=== PATIENT | female | born 1935 | race Caucasian/White ===

== ENCOUNTER → 2017-03-29 | Outpatient (REF) | payer MEDICARE, BC, OTHER ==
[~2017-03-29] MED LIST: ALEV220C2 PO; ASPI81TA85 PO; CALC600T7 PO; CENTCHW4 PO; CRAN500C2 PO; CYCL10TA3 PO; GERITAB9 PO; GLUC500C4 PO; IRON100T PO; OMEP20CA3 PO; PRAV40TA2 PO; ULTR50TA PO; [UNRECOGNIZED DRUG - MIXTURE] PO
== END ==
LOC: M LAB REF 09:50
PROVIDERS: ATTEND Registered Nurse
DX: L82.1 Other seborrheic keratosis (principal)

== ENCOUNTER 2020-06-07 13:40 | Inpatient (IN) | payer MEDICARE, BC, OTHER ==
[~2020-06-07] VITALS: Ht 165.1 cm; Wt 62.1 kg
[2020-06-07 17:45] VITALS: BP 153/93
[2020-06-07] MEDS ORDERED: MORPHINE 2 MG/ML 1ML VIAL (J2270) IV PRN (18:30)
--- NOTE | 2020-06-07 18:37 | HPEPDOC ---
General Date of Admission Jun 07, 2020 at 17:20 Date of Service: Jun 07, 2020 Attending Physician: JOSE SIMON DO Chief Complaint The patient is a 84-year-old female admitted with a reason for visit of Mid Shaft Femur Fracture. Source: Patient Exam Limitations: No limitations History of Present Illness Mrs. Boggs is an 84-year-old female with osteoporosis, arthritis, lumbago, and hyperlipidemia who is transferred here from [facility] for right femur fracture. Prior treatments today she was feeling well. She is not able to climb stairs secondary to her left leg fracture, but she tells me that she can walk the length of either [employer] or [employer] without difficulty. She sometimes uses a cane to help her walk. Today she tripped over a paperhanger assistant and fell on the dining room floor. She denied any head strike. She denied any lightheadedness or dizziness. She denies any palpitations or chest pain. She denies any loss of consciousness. She went to the ED at [facility] where they found her left leg fracture. They contacted orthopedic surgery, Dr. Jennings. Then, the patient was transferred here. When I went to see the patient, she told me that she was feeling well other than her leg. Denied any fever or chills, sore throat, dyspnea, or worsening cough. She tells me she has a chronic cough. Her lungs sounded clear, and her heart was in sinus rhythm. The patient is medically optimized. There is no contraindication to surgery. Afterwards I contacted Dr. Jennings to let him know about the patient. Home Medications Scheduled (Aleve) 220 Mg Cap, 220 MG PO PRN, (Reported) Aspirin (Aspir 81) 81 Mg Tab, 81 MG PO DAILY, (Reported) Calcium Carbonate/Vitamin D3 (Calcium 600-Vit D3 200 Tablet) 600 Mg Tab, 600 MG PO BID, (Reported) Cranberry Extract (Cranberry) 500 Mg Cap, 2,000 MG PO BID, (Reported) Cyclobenzaprine Hcl (Cyclobenzaprine Hcl) 10 Mg Tab, 10 MG PO PRN, (Reported) Glucosamine Sulfate (Glucosamine) 500 Mg Cap, 500 MG PO DAILY, (Reported) Iron,Carbonyl/Ascorbic Acid (Iron 100-Vitamin C Tablet) 1 Tab Tab, 1 TAB PO BID, (Reported) Multivit-Min/Iron/Folic/Vit K1 (Centrum Chewables Adults Tab) 1 Each Tab.chew, 1 PO IOANA, (Reported) Multivit-Min36/Iron/Folic Acid (Geritol Complete Tablet) Complete Tab, 1 PO DAILY, (Reported) Omeprazole (Omeprazole) 20 Mg Cap, 20 MG PO BID, (Reported) Pravastatin Sodium (Pravastatin Sodium) 40 Mg Tab, 20 MG PO DAILY, (Reported) Tramadol Hcl (Ultram) 50 Mg Tab, 50 MG PO PRN, (Reported) [Tosartan-Hctz] , PO DAILY, (Reported) Allergies Coded Allergies: No Known Drug Allergies (Verified Allergy, Unknown, 06/07/20) Past Medical History Medical History 1. Hyperlipidemia 2. GERD 3. Osteoporosis 4. Allergic rhinitis 5. Arthritis 6. Glaucoma Surgical History 1. Left hip replacement Family History Father: Cancer, unknown Mother: Kidney cancer Social History * Smoker: former Smoker (quit 65 years ago, smoked for 1 year, quarter pack per day) Alcohol: occationally Drugs: denies A-FIB/CHADSVASC A-FIB History Current/History of A-Fib/PAF?: No Review of Systems Constitutional: Denies: Chills, Fever Eyes: Denies: Vision change ENT: Denies: Head Aches Skin: Denies: Rash Pulmonary: Reports: Cough (chronic); Denies: Dyspnea Cardiovascular: Denies: Chest Pain, Palpitations Gastrointestinal: Reports: Constipation (last bowel movement was yesterday); Denies: Nausea, Abdominal Pain, Diarrhea Genitourinary: Denies: Dysuria Musculoskeletal: Reports: Leg Pain (secondary to right leg fracture) Neurological: Reports: Numbness (occasionally gets numbness in her right leg, currently not numb) Physical Examination General Exam: Positive: Alert, Cooperative, No Acute Distress Eye Exam: Positive: EOMI; Negative: Sclera icteric ENT Exam: Positive: Atraumatic, Mucous membr. moist/pink Neck Exam: Positive: Supple Chest Exam: Positive: Clear to auscultation; Negative: Rales, Rhonchi, Wheezing Heart Exam: Positive: Rate Normal, Regular Rhythm Abdomen Exam: Positive: Normal bowel sounds, Soft; Negative: Tenderness Extremity Exam: Negative: Edema Neuro Exam: Positive: Cranial Nerves 3-12 NL Psych Exam: Positive: Mental status NL, Mood NL, Oriented x 3 Vital Signs Temperature: 98.8, pulse: 68, respiratory: 17, blood pressure: 153/69, pulse ox: 98% at room air Assessment/Plan Mrs. Boggs is an 84-year-old female with osteoporosis, arthritis, lumbago, and history of left hip replacement who is here after having a mechanical fall and fracturing her right femur. Today she did not see the paperhanger assistant, and tripped over the paperhanger assistant landing on hardwood floor. She went to [facility] ED where they found her to have a right femur fracture. I contacted Dr. Jennings, he is aware and will be seeing the patient. Patient is medically optimized. There is no contraindication for surgery, and patient should proceed as needed. Plan / VTE VTE Prophylaxis Ordered?: Yes Plan Plan 1. Right femur fracture Mechanical fall. Slipped on a paperhanger assistant. Denies any head strike, loss of consciousness, lightheadedness or dizziness, chest pain, or palpitations. Orthopedics, Dr. Jennings, is aware. He will be seeing the patient tonight. Recommendations appreciated NPO 2. Glaucoma We will continue her eyedrops 3. Hypertension Restart antihypertensives tomorrow 4. Hyperlipidemia Restart statin tomorrow 5. GERD Restart PPI tomorrow 6. DVT prophylaxis KEISHA on left leg for now as patient will be having surgery on the right leg. JOSE SIMON DO Jun 07, 2020 18:17
[2020-06-07] MEDS ORDERED: PRAV40TA2 PO (18:44)
[2020-06-07] MEDS ORDERED: CALCTAB89 PO (18:44)
[2020-06-07] MEDS ORDERED: ASPI81TA86 PO (18:44)
[2020-06-07] MEDS ORDERED: POTA10CA32 PO (18:44)
[2020-06-07] MEDS ORDERED: MULTTAB57 PO (18:44)
[2020-06-07] MEDS ORDERED: AZOP0.2S OS (18:44)
[2020-06-07] MEDS ORDERED: NEXI20TA PO (18:44)
[2020-06-07] MEDS ORDERED: TRAV2.5D OU (18:44)
[2020-06-07] MEDS ORDERED: LOSA100T50 PO (18:44)
[2020-06-07] MEDS ORDERED: HYDR25TAB PO (18:44)
[2020-06-07 20:23] VITALS: BP 144/67
[2020-06-07] MEDS ORDERED: propofoL 200 MG/20 ML VIAL As Ordered ONE (20:46)
[2020-06-07] MEDS ORDERED: dexameTHASONE 4 MG/ML 1ML VIAL (J1100 PER 1MG) As Ordered ONE (20:46)
[2020-06-07] MEDS ORDERED: LIDOCAINE 2% 100MG/5ML SDV (FOR ANES.) As Ordered ONE (20:46)
[2020-06-07] MEDS ORDERED: fentaNYL 100 MCG/2 ML INJECTION (J3010) As Ordered ONE (20:46)
[2020-06-07] MEDS ORDERED: ONDANSETRON 4MG/2ML VIAL As Ordered ONE (20:47)
[2020-06-07] MEDS ORDERED: TRANEXAMIC ACID 100 MG/ML 10ML VIAL As Ordered ONE (20:49)
[2020-06-07] MEDS ORDERED: ceFAZolin 1GM VIAL (J0690 PER 500MG) As Ordered ONE (20:49)
[2020-06-07] MEDS: POTASSIUM CHLORIDE 10 MEQ SR TABLET PO SCH (21:00)
[2020-06-07] MEDS: BRINZOLAMIDE 1 % OPHTH SUSP (AZOPT) 10ML OS SCH (21:00)
[2020-06-07] MEDS: LATANOPROST 0.005% OPHTH SOLN 2.5 ML OU SCH (21:00)
[2020-06-07] MEDS ORDERED: ceFAZolin 2 GM/D5W 50 ML IV BAG (J0690 PER 500MG) As Ordered ONE (21:32)
[2020-06-07] MEDS ORDERED: PHENYLephrine HCL 500 MCG/5 ML (100MCG/ML) SYRINGE (J2370) As Ordered ONE (21:44)
[2020-06-07] MEDS ORDERED: ACETAMINOPHEN 1000MG 100ML IV BTL (OFIRMEV) (J0131 PER 10MG) As Ordered ONE (22:23)
[2020-06-07] MEDS ORDERED: ePHEDrine SULFATE 25 MG/5 ML(5MG/ML) SYRINGE As Ordered ONE (22:23)
[2020-06-07] MEDS ORDERED: BUPIVACAINE HCL 0.25% 10ML VIAL As Ordered ONE (23:04)
[2020-06-07] MEDS ORDERED: fentaNYL 100 MCG/2 ML INJECTION (J3010) IV PRN (23:45)
[2020-06-07] MEDS ORDERED: MEPERIDINE INJ 25 MG/ML VIAL (J2175) IV PRN (23:45)
[2020-06-07] MEDS ORDERED: PERCOCET 5MG/325MG TAB PO PRN (23:45)
[2020-06-08] VITALS (10 sets, daily range): BP systolic 139–168; BP diastolic 58–75
[2020-06-08] MEDS ORDERED: LR 1,000 ML IV SCH (03:30)
[2020-06-08] MEDS ORDERED: ACETAMINOPHEN 500 MG TAB PO PRN (06:00)
[2020-06-08] MEDS: traMADol 50 MG TAB PO PRN ×2 (06:13→18:52)
[2020-06-08 07:04] LABS: HEMOGLOBIN 10.2 g/dl (12.0-15.5); MEAN CORPUSCULAR HEMOGLOBIN 32.9 pg (27.0-33.0); MEAN CORPUSCULAR HGB CONC 31.9 g/dl (32.0-36.5); MEAN CORPUSCULAR VOLUME 103.2 fl (80.0-96.0); PLATELET COUNT, AUTOMATED 234 10^3/uL (150-450); WHITE BLOOD COUNT 12.3 10^3/uL (4.0-10.0)
[2020-06-08 07:37] LABS: ALBUMIN 2.9 GM/DL (3.2-5.2); ALT/SGPT 14 U/L (12-78); BILIRUBIN,TOTAL 0.4 MG/DL (0.2-1.0); BLOOD UREA NITROGEN 17 MG/DL (7-18); CALCIUM LEVEL 8.2 MG/DL (8.8-10.2); CARBON DIOXIDE LEVEL 22 MEQ/L (21-32); CHLORIDE LEVEL 108 MEQ/L (98-107); CREATININE FOR GFR 0.93 MG/DL (0.55-1.30); GLOMERULAR FILTRATION RATE > 60.0 (>32); GLUCOSE, FASTING 137 MG/DL (70-100); POTASSIUM SERUM 3.9 MEQ/L (3.5-5.1); SODIUM LEVEL 139 MEQ/L (136-145); TOTAL PROTEIN 6.4 GM/DL (6.4-8.2)
--- NOTE | 2020-06-08 09:47 | ECGEPIP ---
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
[2020-06-08] MEDS: BRINZOLAMIDE 1 % OPHTH SUSP (AZOPT) 10ML OS SCH ×2 (09:48→20:48)
[2020-06-08] MEDS: MOM 30ML SUSPENSION UDC PO SCH (09:48)
[2020-06-08] MEDS: LOSARTAN 50MG TABLET PO SCH (09:48)
[2020-06-08] MEDS: MIRALAX *UNIT DOSE* 17GM PACKET PO SCH (09:48)
[2020-06-08] MEDS: PRAVASTATIN 20 MG TAB PO SCH (09:49)
[2020-06-08] MEDS: hydroCHLOROthiazide 25 MG TAB PO SCH (09:49)
[2020-06-08] MEDS: PANTOPRAZOLE 20 MG TAB PO SCH (09:49)
[2020-06-08] MEDS: POTASSIUM CHLORIDE 10 MEQ SR TABLET PO SCH ×2 (09:50→20:50)
[2020-06-08] MEDS: RIVAROXABAN 10 MG TAB (XARELTO) PO SCH (18:51)
[2020-06-08] MEDS ORDERED: CALCIUM CARBONATE 500 MG CHEW U/D PO PRN (19:00)
--- NOTE | 2020-06-08 19:06 | IPNPDOC ---
Subjective Date Seen The patient was seen on 06/08/20. Subjective Chief Complaint/HPI Mrs. Boggs is an 84-year-old female with osteoporosis, arthritis, lumbago, and hyperlipidemia who is transferred here from [facility] for right femur fracture. This morning physical therapy try to work with her, but she did not do well. She became very tachycardic when trying to sit up. Otherwise when I spoke with her, she had pain in her right leg. Denies any fever or chills, lightheadedness or dizziness, chest pain, dyspnea, diarrhea, or dysuria. Constitutional: Denies: Chills, Fever Pulmonary: Denies: Dyspnea Cardiovascular: Denies: Chest Pain Gastrointestinal: Denies: Abdominal Pain, Diarrhea Genitourinary: Denies: Dysuria Objective Physical Examination General Exam: Positive: Alert, Cooperative, No Acute Distress Eye Exam: Positive: EOMI; Negative: Sclera icteric ENT Exam: Positive: Atraumatic, Mucous membr. moist/pink Neck Exam: Positive: Supple Chest Exam: Positive: Clear to auscultation; Negative: Rales, Rhonchi, Wheezing Heart Exam: Positive: Rate Normal, Regular Rhythm Abdomen Exam: Positive: Normal bowel sounds, Soft; Negative: Tenderness Extremity Exam: Negative: Edema Neuro Exam: Positive: Cranial Nerves 3-12 NL Psych Exam: Positive: Mental status NL, Mood NL, Oriented x 3 Assessment /Plan Assessment Mrs. Boggs is an 84-year-old female with osteoporosis, arthritis, lumbago, and history of left hip replacement who is here after having a mechanical fall and fracturing her right femur. Her surgery was on 06/07/2020. Today is postop day 1. She did not do well with physical therapy. Physical therapy recommended skilled rehabilitation. Plan/VTE VTE Prophylaxis Ordered?: Yes Plan 1. Right femur fracture Mechanical fall. Slipped on a guide changer. Denies any head strike, loss of consciousness, lightheadedness or dizziness, chest pain, or palpitations. Orthopedic surgery following. Recommendations appreciated 2. Glaucoma We will continue her eyedrops 3. Hypertension Continue losartan and HCTZ 4. Hyperlipidemia Continue pravastatin 5. GERD Protonix Patient requested Tums as well 6. DVT prophylaxis Xarelto Dispo: Will need to discuss long term with therapeutic case manager on Wednesday. VS, I&O, 24H, Fishbone Vital Signs/I&O Vital Signs Date Time Temp Pulse Resp B/P (MAP) Pulse Ox O2 Delivery O2 Flow Rate FiO2 06/08/20 18:52 20 06/08/20 14:00 98.8 97 154/68 (96) 97 Room Air 06/07/20 23:25 2 I&O- Last 24 Hours up to 6 AM 06/08/20 06:00 Intake Total 1400 ml Output Total 1000 ml Balance 400 ml Laboratory Data 24H LABS Laboratory Tests 2 06/08/20 06:23: Nucleated Red Blood Cells % (auto) 0.0, Anion Gap 9, Glomerular Filtration Rate > 60.0, Calcium Level 8.2L, Total Bilirubin 0.4, Aspartate Amino Transf (AST/SGOT) 20, Alanine Aminotransferase (ALT/SGPT) 14, Alkaline Phosphatase 28L, Total Protein 6.4, Albumin 2.9L, Albumin/Globulin Ratio 0.8L CBC/BMP Laboratory Tests 06/08/20 06:23 JOSE SIMON DO Jun 08, 2020 19:06
[2020-06-08] MEDS: LATANOPROST 0.005% OPHTH SOLN 2.5 ML OU SCH (20:50)
[2020-06-08] MEDS: traZODone 25MG PER 1/2 TABLET PO SCH (20:50)
[2020-06-09] MEDS: traMADol 50 MG TAB PO PRN ×3 (01:47→20:33)
[2020-06-09 06:00] VITALS: BP 136/64
[2020-06-09 08:00] LABS: HEMATOCRIT 28.7 % (36.0-47.0); HEMOGLOBIN 9.2 g/dl (12.0-15.5); MEAN CORPUSCULAR HGB CONC 32.1 g/dl (32.0-36.5); MEAN CORPUSCULAR VOLUME 102.9 fl (80.0-96.0); PLATELET COUNT, AUTOMATED 283 10^3/uL (150-450); RED BLOOD COUNT 2.79 10^6/uL (4.00-5.40); WHITE BLOOD COUNT 11.7 10^3/uL (4.0-10.0)
[2020-06-09 08:40] LABS: CALCIUM LEVEL 8.6 MG/DL (8.8-10.2); CREATININE FOR GFR 1.1 MG/DL (0.55-1.30); GLOMERULAR FILTRATION RATE 50.4 (>32); POTASSIUM SERUM 4.2 MEQ/L (3.5-5.1)
[2020-06-09] MEDS: LOSARTAN 50MG TABLET PO SCH (09:30)
[2020-06-09] MEDS: hydroCHLOROthiazide 25 MG TAB PO SCH (09:31)
[2020-06-09] MEDS: POTASSIUM CHLORIDE 10 MEQ SR TABLET PO SCH ×2 (09:31→20:33)
[2020-06-09] MEDS: PANTOPRAZOLE 20 MG TAB PO SCH (09:32)
[2020-06-09] MEDS: MOM 30ML SUSPENSION UDC PO SCH (09:32)
[2020-06-09] MEDS: PRAVASTATIN 20 MG TAB PO SCH (09:32)
[2020-06-09] MEDS: MIRALAX *UNIT DOSE* 17GM PACKET PO SCH (09:33)
[2020-06-09] MEDS: BRINZOLAMIDE 1 % OPHTH SUSP (AZOPT) 10ML OS SCH ×2 (09:34→20:33)
[2020-06-09 14:00] VITALS: BP 152/63
--- NOTE | 2020-06-09 15:49 | IPNPDOC ---
Subjective Date Seen The patient was seen on 06/09/20. Subjective Chief Complaint/HPI Mrs. Boggs is an 84-year-old female with osteoporosis, arthritis, lumbago, and hyperlipidemia who is transferred here from [facility] for right femur fracture. This morning, she is still having pain with the right leg. She has trouble standing on it. Otherwise, denies any fever or chills, lightheadedness or dizziness, chest pain, dyspnea, diarrhea, or dysuria. Did not have bowel movement this morning Constitutional: Denies: Chills, Fever Pulmonary: Denies: Dyspnea Cardiovascular: Denies: Chest Pain Gastrointestinal: Reports: Constipation; Denies: Abdominal Pain, Diarrhea Genitourinary: Denies: Dysuria Objective Physical Examination General Exam: Positive: Alert, Cooperative, No Acute Distress Eye Exam: Positive: EOMI; Negative: Sclera icteric ENT Exam: Positive: Atraumatic, Mucous membr. moist/pink Neck Exam: Positive: Supple Chest Exam: Positive: Clear to auscultation; Negative: Rales, Rhonchi, Wheezing Heart Exam: Positive: Rate Normal, Regular Rhythm Abdomen Exam: Positive: Normal bowel sounds, Soft; Negative: Tenderness Extremity Exam: Negative: Edema Neuro Exam: Positive: Cranial Nerves 3-12 NL Psych Exam: Positive: Mental status NL, Mood NL, Oriented x 3 Assessment /Plan Assessment Mrs. Boggs is an 84-year-old female with osteoporosis, arthritis, lumbago, and history of left hip replacement who is here after having a mechanical fall and fracturing her right femur. Her surgery was on 06/07/2020. Today is postop day 2. She did not do well with physical therapy. Physical therapy recommended skilled rehabilitation. Plan/VTE VTE Prophylaxis Ordered?: Yes Plan 1. Right femur fracture Mechanical fall. Slipped on a slip box changer. Denies any head strike, loss of consciousness, lightheadedness or dizziness, chest pain, or palpitations. Orthopedic surgery following. Recommendations appreciated -POD#2 from surgery, will need rehab 2. Glaucoma We will continue her eyedrops 3. Hypertension Continue losartan and HCTZ 4. Hyperlipidemia Continue pravastatin 5. GERD Protonix. TUMs 6. DVT prophylaxis Xarelto Dispo: Will need to discuss halfway with rn case manager on Wednesday. VS, I&O, 24H, Fishbone Vital Signs/I&O Vital Signs Date Time Temp Pulse Resp B/P (MAP) Pulse Ox O2 Delivery O2 Flow Rate FiO2 06/09/20 14:00 98.0 93 19 152/63 (92) 97 Room Air 06/07/20 23:25 2 I&O- Last 24 Hours up to 6 AM 06/09/20 06:00 Intake Total 1990 ml Output Total 1600 ml Balance 390 ml Laboratory Data 24H LABS Laboratory Tests 2 06/09/20 06:46: Nucleated Red Blood Cells % (auto) 0.0, Anion Gap 7L, Glomerular Filtration Rate 50.4, Calcium Level 8.6L CBC/BMP Laboratory Tests 06/09/20 06:46 JOSE SIMON DO Jun 09, 2020 15:49
[2020-06-09] MEDS: RIVAROXABAN 10 MG TAB (XARELTO) PO SCH (17:50)
[2020-06-09] MEDS: traZODone 25MG PER 1/2 TABLET PO SCH (20:32)
[2020-06-09] MEDS: LATANOPROST 0.005% OPHTH SOLN 2.5 ML OU SCH (20:33)
[2020-06-09 22:00] VITALS: BP 153/83
[2020-06-10 06:00] VITALS: BP 135/64
[2020-06-10 07:18] LABS: HEMATOCRIT 26.7 % (36.0-47.0); HEMOGLOBIN 8.4 g/dl (12.0-15.5); MEAN CORPUSCULAR HEMOGLOBIN 33.1 pg (27.0-33.0); MEAN CORPUSCULAR HGB CONC 31.5 g/dl (32.0-36.5); MEAN CORPUSCULAR VOLUME 105.1 fl (80.0-96.0); PLATELET COUNT, AUTOMATED 265 10^3/uL (150-450); RED BLOOD COUNT 2.54 10^6/uL (4.00-5.40); WHITE BLOOD COUNT 10.9 10^3/uL (4.0-10.0)
[2020-06-10 07:36] LABS: CALCIUM LEVEL 8.4 MG/DL (8.8-10.2); CREATININE FOR GFR 1.03 MG/DL (0.55-1.30); GLOMERULAR FILTRATION RATE 54.3 (>32); POTASSIUM SERUM 4.1 MEQ/L (3.5-5.1)
[2020-06-10] MEDS: MOM 30ML SUSPENSION UDC PO SCH (09:00)
[2020-06-10] MEDS: MIRALAX *UNIT DOSE* 17GM PACKET PO SCH (09:00)
[2020-06-10 09:21] VITALS: BP 122/52
[2020-06-10] MEDS: LOSARTAN 50MG TABLET PO SCH (09:21)
[2020-06-10] MEDS: POTASSIUM CHLORIDE 10 MEQ SR TABLET PO SCH (09:21)
[2020-06-10] MEDS: PRAVASTATIN 20 MG TAB PO SCH (09:21)
[2020-06-10] MEDS: hydroCHLOROthiazide 25 MG TAB PO SCH (09:21)
[2020-06-10] MEDS: BRINZOLAMIDE 1 % OPHTH SUSP (AZOPT) 10ML OS SCH (09:22)
[2020-06-10] MEDS: PANTOPRAZOLE 20 MG TAB PO SCH (09:22)
[2020-06-10] MEDS ORDERED: TRAM50TA2 PO (12:36)
[2020-06-10] MEDS ORDERED: ACET-683 PO (12:36)
[2020-06-10] MEDS ORDERED: MOM30SS2 PO (12:36)
[2020-06-10] MEDS ORDERED: PEG1POW PO (12:36)
[2020-06-10] MEDS ORDERED: XARE10TA PO (12:36)
[2020-06-10] MEDS ORDERED: TRAZ-252 PO (12:36)
[2020-06-10] MEDS ORDERED: CALC200T15 PO (12:36)
[2020-06-10 14:00] VITALS: BP 133/64
--- NOTE | 2020-06-10 20:51 | DS.PDOC ---
Discharge Summary General Date of Admission Jun 07, 2020 at 17:20 Date of Discharge 06/10/2020 Attending Physician: JOSE SIMON DO Specialist/Consultants Involve Orthopedic surgery, Dr. Jennings Discharge Summary PROCEDURES PERFORMED DURING STAY: Recon Nail Right Femur (midshaft femur fracture) ADMITTING DIAGNOSES: 1. Right femur fracture 2. Glaucoma 3. Hypertension 4. Hyperlipidemia 5. GERD DISCHARGE DIAGNOSES: 1. Right femur fracture 2. Glaucoma 3. Hypertension 4. Hyperlipidemia 5. GERD COMPLICATIONS/CHIEF COMPLAINT: Mid Shaft Femur Fracture. HISTORY OF PRESENT ILLNESS: Mrs. Boggs is an 84-year-old female with osteoporosis, arthritis, lumbago, and hyperlipidemia who is transferred here from [facility] for right femur fracture. Prior treatments today she was feeling well. She is not able to climb stairs secondary to her left hip fracture, but she tells me that she can walk the length of either [employer] or [employer] without difficulty. She sometimes uses a cane to help her walk. Today, she tripped over a hangersmith and fell on the dining room floor. She denied any head strike. She denied any lightheadedness or dizziness. She denies any palpitations or chest pain. She denies any loss of consciousness. She went to the ED at [facility] where they found her left leg fracture. They contacted orthopedic surgery, Dr. Jennings. Then, the patient was transferred here. When I went to see the patient, she told me that she was feeling well other than her leg. Denied any fever or chills, sore throat, dyspnea, or worsening cough. She tells me she has a chronic cough. Her lungs sounded clear, and her heart was in sinus rhythm. The patient is medically optimized. There is no contraindication to surgery and patient proceeded to surgery HOSPITAL COURSE: After surgery, patient did not do well with physical therapy. PT recommending rehabilitation. ARU evaluated the patient and accepted the patient to their rehabilitation. Today patient felt well, denied any fever or chills, lightheadedness or dizziness, chest pain, dyspnea, abdominal pain, dysuria. Patient still has pain about controlled with pain medication. Patient was then discharged to [place]. DISCHARGE MEDICATIONS: Please see below. ALLERGIES: Please see below. PHYSICAL EXAMINATION ON DISCHARGE: VITAL SIGNS: Please see below. GENERAL: Comfortable, in no apparent distress. HEENT: Head normocephalic/atraumatic, EOMI, sclera clear. NECK: Supple, no JVD. RESPIRATORY: Lungs clear to auscultation bilaterally, no rales, wheeze or rhonchi. CARDIOVASCULAR: Regular rate and rhythm. ABDOMEN: Soft, nontender, no guarding or rebound tenderness. Normal bowel sound s. MUSCLE SKELETAL: Muscle strength in arms 5/5 NEUROLOGICAL: CN 312 grossly intact, no focal deficits noted. PSYCHOLOGICAL: Normal mood and affect LABORATORY DATA: Please see below. PROGNOSIS: Stable ACTIVITY: As tolerated. DIET: Regular diet DISCHARGE PLAN: Discharged to ARU for rehabilitation DISPOSITION: 62 D/T Rehab Facility. DISCHARGE INSTRUCTIONS: 1. Follow-up with Dr. Lane. DISCHARGE CONDITION: Stable Total time spent on discharge planning, discharge summary, and med reconc iliation 35 minutes Vital Signs/I&Os Vital Signs Date Time Temp Pulse Resp B/P (MAP) Pulse Ox O2 Delivery O2 Flow Rate FiO2 06/10/20 14:00 97.9 98 18 133/64 (87) 97 Room Air 06/07/20 23:25 2 I&O- Last 24 Hours up to 6 AM 06/10/20 06:00 Intake Total 1240 ml Output Total 800 ml Balance 440 ml Laboratory Data Labs 24H Laboratory Tests 2 06/10/20 06:42: Nucleated Red Blood Cells % (auto) 0.0, Anion Gap 9, Glomerular Filtration Rate 54.3, Calcium Level 8.4L CBC/BMP Laboratory Tests 06/10/20 06:42 Discharge Medications Scheduled Aspirin (Aspir 81) 81 Mg Tablet.dr, 81 MG PO BID, (Reported) Brinzolamide (Azopt) 1% 10ML Drops.susp, 1 DROP OS BID, (Reported) Calcium Carbonate (Calcium) 600 Mg Tablet, 600 MG PO BID, (Reported) Esomeprazole Magnesium (Nexium 24Hr) 20 Mg Tablet.dr, 20 MG PO DAILY, (Reported) Hydrochlorothiazide (Hydrochlorothiazide) 25 Mg Tablet, 25 MG PO DAILY, (Reported) Iron Fum,Ag/C/B12/Folic/Ca/Suc (Multigen Plus Caplet) 1 Each Tablet, 1 TAB PO DAILY, (Reported) Losartan Potassium (Losartan Potassium) 100 Mg Tablet, 100 MG PO DAILY, (Reported) Potassium Chloride (Potassium Chloride) 10 Meq Capsule.er, 10 MEQ PO BID, (Reported) Pravastatin Sodium (Pravastatin Sodium) 40 Mg Tablet, 40 MG PO DAILY, (Reported) Rivaroxaban (Xarelto) 10 Mg Tablet, 10 MG PO DAILY@18 Travoprost (Travoprost) 2.5 Ml Drops, 1 DROP OU QHS, (Reported) Trazodone HCl (Trazodone HCl) 50 Mg Tablet, 25 MG PO QHS Scheduled PRN Acetaminophen (Acetaminophen) 500 Mg Tablet, 1,000 MG PO Q8H PRN for PAIN / FEVER Calcium Carbonate (Calcium Carbonate) 200 Mg Tab.chew, 1,000 MG PO Q8HP PRN for HEARTBURN Magnesium Hydroxide (Milk of Magnesia) 400 Mg/5 Ml Oral.susp, 30 ML PO DAILYPRN PRN for CONSTIPATION Polyethylene Glycol 3350 (Polyethylene Glycol 3350) 17 Gm Powd.pack, 1 PKT PO DAILYPRN PRN for CONSTIPATION Tramadol HCl (Tramadol HCl) 50 Mg Tablet, 50 MG PO Q4HP PRN for MODERATE PAIN (PS 5-7) Allergies Coded Allergies: No Known Drug Allergies (Verified Allergy, Unknown, 06/07/20) JOSE SIMON DO Jun 10, 2020 20:51
--- NOTE | 2020-06-11 14:30 | HPE ---
DATE OF ADMISSION: 06/07/2020 CHIEF COMPLAINT: Right midshaft femur fracture. HISTORY OF PRESENT ILLNESS: This 84-year-old female had a trip and fall at home. She tripped over a pattern hanger. No loss of consciousness or other injuries. She is unable to bear weight on her right leg. She went to [facility] and transferred here and admitted to the hospitalist service on at [facility]. She is complaining of right thigh pain. She has pain nowhere else. PAST MEDICAL HISTORY: Nil MEDICATIONS: See the hospitalist note, but she is not on anticoagulation. ALLERGIES: No known drug allergies. SURGICAL IHSTORY: Nil SOCIAL HISTORY: She lives with Eddie, her boyfriend. She lives in a house. She does not smoke. She uses a cane. She is retired. 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 She has four children. PHYSICAL EXAMINATION: She is a well appearing female, looks good for her stated age. She is alert and oriented x3. She communicates appropriately. No obvious deformity to right thigh, but she has pain in the right thigh, nowhere else. No pain in log rolling on the left thigh. There is no pain at the hip or knee. No obvious bruising or open injury. Thigh compartments are soft. Normal sensation in foot. Foot is warm and well perfused. Strong dorsalis pedis pulses. She is able to wiggle her toes, dorsiflex and plantar flex her foot. Blood work reveals INR 0.9. Hemoglobin 11.8. Radiographs taken of the femur read from [facility]. This is a transverse midshaft femur fracture. No other obvious hip or knee injuries; however, there are not dedicated films. Benson virus test pending. ASSESSMENT AND PLAN: This 84-year-old female has right midshaft femur fracture. This is indicated for intramedullary nailing with Synthes Recon nail, open reduction, internal fixation. We discussed pros and cons, risks and benefits of nonsurgical risk versus surgical intervention. The surgical risks included, but limited to infection, pain, stiffness, damage to surrounding structures, neurovascular injury, delayed mal or nonunion, anesthetic complications, blood clots, and other risks, as well as need for further surgery. She understands. Signed consent form for surgery. I marked the right lower extremity. She also consented for possible need for blood products and I explained the pros, cons, risk and benefits of that service as well including, but limited to infection, fever, transmission of bacteria, viruses. We elected to go ahead with the case francesco. Best outcomes are achieved if operated under 24 hours. I have taken intraoperative radiographs of the hip and knee to ensure the femoral fracture as this is common in this injury. The operating room is aware of the case and she will remain n.p.o. and she has been cleared by the hospitalist service and further through the Medicine attending. KATHERINE
--- NOTE | 2020-06-14 13:17 | IPN ---
DATE: 06/08/2020 CHIEF COMPLAINT: Postoperative day #2 right distal femur fracture with retrograde nailing. HISTORY OF PRESENT ILLNESS: This is an 84-year-old female who is postoperative day #2. She is doing extremely well. She has minimal pain at the fracture site. She is already ambulating with the physical therapist. She has not cleared the stairs yet. PHYSICAL EXAMINATION: She is an 84-year-old female. She is extremely pleasant. Incisions have occlusive dressings on aside from the proximal incision. Toes are warm and well-perfused, she is able to wiggle her toes, dorsiflex and plantar flex her foot. Normal sensation in the foot. Vital signs are stable. LABORATORY EXAMINATION: Reveals hemoglobin of 10.2. ASSESSMENT AND PLAN: This is an 84-year-old female who needs to clear the stairs. She may be discharged home today if she able to mobilize and be discharged home. Followup in the office in 2 weeks time to remove naldo. She understands. They will have to make that appointment on Wednesday. We will see how today progresses. We will hopefully place an occlusive dressing on the proximal incision so she can shower the top of the leg. KATHERINE
--- NOTE | 2020-06-14 13:25 | RO ---
DATE OF OPERATION: 06/07/2020 PREOPERATIVE DIAGNOSIS: Right femur fracture. POSTOPERATIVE DIAGNOSIS: Right femur fracture. PLANNED PROCEDURE: Right femur open reduction and internal fixation with Synthes Femoral Recon Nail. PROCEDURE PERFORMED: Right femur open reduction and internal fixation with Synthes Femoral Recon Nail. SURGEON: Geoff Jennings MD ANESTHESIOLOGIST: Dr. Hand ANESTHETIC: General anesthetic. CUSTOMER BUSINESS MANAGER: None. OPERATIVE PREAMBLE: This is an 84-year-old female who sustained a mechanical fall. She sustained a displaced midshaft femur fracture. We discussed pros and cons, risks and benefits, all surgical risks of surgical intervention. The patient wished to go ahead, marked the right lower extremity and proceeded to surgery. OPERATIVE REPORT: The patient was brought to the operating theater, administered general anesthetic. She was placed supine on the fracture table. 2 gm of IV Ancef was administered. All bony prominences were padded. SCDs were used on the down leg. The bear hugger was used. Arm was placed across the body. Right leg in traction, left leg scissored down and attached to the post in mid aspect of the bed and appropriately padded on peroneal aspect as well as mid aspect. The right leg was placed in traction. Preliminary x-rays were obtained. Fracture was falling into apex posterior. A crutch as brought in to hold fracture point and maintain appropriate reduction. Limb was prepped and draped allowing over 3 minutes for prep solution drying time prior to draping. Chlorhexidine-based prep solution was used. Preoperative time out was performed confirming side, patient and surgery. 2 gm IV tranexamic acid was also given prior to the start of the case. I made a small incision 3 fingersbreadth proximal to the level of the greater trochanter. Inserted 3.2 mm partially threaded guidewire at the center of the greater trochanter on both AP and lateral radiographs and through the lesser trochanter as well as down the midshaft of the femur using anterior reamer I passed a ball-tipped guidewire down center-center past the fracture site to the distal aspect of the femur. This measured 390 mm, a 380 mm long nail was chosen with 11 mm diameter. I sequentially reamed up to size 12.5 mm and passed the nail down distally. The fracture was appropriately reduced. Traction was slightly removed to remove a small gap at the fracture site. I then turned my attention proximally. Using drop down guide I then inserted the nail to appropriate depth. I inserted the two guidewires for the femoral neck and head reconstruction screws. This measured 80 mm proximally and 90 mm distally. I drilled and then inserted the two screws to appropriate depth on both PA and lateral radiographs ensuring no penetration, appropriate placement in the midshaft of the neck on lateral radiograph. No obvious femoral neck fracture was seen. I then turned my attention to the fracture site. I ensure the cortices lined up as well as the profile of the lesser trochanter was appropriate compared to the other side as well as overall alignment clinically patella is straight up and down and foot appropriately placed. I used perfect-mescalero apache technique to then insert two fully threaded distal locking screws from lateral to medial. These measured 52 mm long distally and 42 mm long proximally. Fracture appeared well reduced. The proximal guide was removed, final radiographs taken at the fracture site as well as distally and proximally. Fracture appeared well aligned and well fixated. The wounds were thoroughly irrigated. Subcutaneous tissue was closed with 2-0 Vicryl sutures and skin with naldo. 10 mL 0.25% Marcaine was instilled in and around the incision sites. Skin was Skin was cleaned with wet-to-dry dressing followed by application of Adaptic and gauze dressings. The patient was removed from the traction setup, awoken from general anesthetic, transferred off the operating table and taken to the postanesthesia care unit in stable condition. All sponge, needle, clamps and instrument counts were correct. Estimated blood loss 100 mL. Plan for the patient is to be admitted to the hospital, weightbearing as tolerated. She will have OT/PT for assessment of safety for mobilization upon discharge home. Follow up in clinic in 2 weeks time for discontinuation of naldo and clinical check. DVT prophylaxis with Xarelto 10 mg PO once daily starting on postoperative day one. MTDD
--- NOTE | 2020-06-26 08:19 | REP ---
DATE: 06/07/2020 C-ARM VIEWS OF RIGHT FEMUR REPORT: Multiple C-arm views of the right femur performed. There is an intramedullary maddie in the femoral shaft. The fracture of the femoral shaft is well aligned. The intramedullary maddie is fixed distally with two metallic screws and proximally with two screws extending through the intertrochanteric region into the femoral head. 4 minutes, 12 seconds fluoroscopy time utilized. MTDD
== END 2020-06-10 15:05 | DRG 482 ==
LOC: M MS5PR 17:20
PROVIDERS: ADMIT Family Medicine; ATTEND Internal Medicine
PROC: 0QSB04Z Reposition Right Lower Femur with Internal Fixation Device, Open Approach (ICD-10-PCS; principal; 2020-06-07 19:30)
DX: S72.321A Displaced transverse fracture of shaft of right femur, initial encounter for closed fracture (principal); W18.09XA Striking against other object with subsequent fall, initial encounter; Y92.009 Unspecified place in unspecified non-institutional (private) residence as the place of occurrence of the external cause; H40.9 Unspecified glaucoma; I10 Essential (primary) hypertension; M19.90 Unspecified osteoarthritis, unspecified site; E78.5 Hyperlipidemia, unspecified; K21.9 Gastro-esophageal reflux disease without esophagitis; M81.0 Age-related osteoporosis without current pathological fracture; J30.9 Allergic rhinitis, unspecified; Z87.891 Personal history of nicotine dependence; Z96.642 Presence of left artificial hip joint; Z79.899 Other long term (current) drug therapy; Z79.82 Long term (current) use of aspirin

== ENCOUNTER 2020-06-10 13:56 | Inpatient (IN) | payer MEDICARE, BC, OTHER ==
[~2020-06-10] VITALS: Ht 165.1 cm; Wt 58.8 kg
[~2020-06-10 13:56] MED LIST changes: +ACET-683 PO; +ASPI81TA86 PO; +AZOP0.2S OS; +CALC200T15 PO; +CALCTAB89 PO; +HYDR25TAB PO; +LOSA100T50 PO; +MOM30SS2 PO; +MULTTAB57 PO; +NEXI20TA PO; +PEG1POW PO; +POTA10CA32 PO; +TRAM50TA2 PO; +TRAV2.5D OU; +TRAZ-252 PO; +XARE10TA PO
--- NOTE | 2020-06-10 14:18 | HPEPDOC ---
Video Game Repair Technician Note DATE OF ADMISSION: 06-10-20 DATE OF SERVICE: 06-10-20 TIME OF ADMISSION: Please refer to physician's admission order. SOURCE OF ADMISSION INFORMATION: [facility] record and patient CHIEF COMPLAINT: right hip fracture HISTORY OF PRESENT ILLNESS: 84F pmh osteoporosis, chronic low back pain, HLD, glaucoma, allergic rhinitis fell and was transferred from [facility] to [facility] ED on 06-07-20 with a right mid-shaft femur fracture. She was evaluated by orthopedics and underwent an ORIF on 06-07-20 with post-op leukocytosis and difficulty with pain. In addition she had post-op anemia with a drop in her Hgb from 10.2 to 8.4 and noted to have desaturations in her oxygen level in therapy. She was evaluated by therapy and noted to be well below her baseline for mobility and ADLs and deemed medically appropriate for discharge to ARU on 06-10-20. On initial eval she reports feeling weaker overall and a little dizzy with movement. REVIEW OF SYSTEMS: The following is a completed review of systems and has been reviewed. Review of systems otherwise unremarkable. PAIN: Patient self reports right leg pain EYES: No recent vision changes EARS, NOSE, & THROAT: No throat pain, or dysphagia, or rhinorrhea CARDIOVASCULAR: Denies chest pain or palpitations PULMONARY: Denies shortness of breath GASTROINTESTINAL: Denies constipation/diarrhea GENITOURINARY: denies dysuria MUSCULOSKELETAL: right femur fracture NEUROLOGICAL:denies paresthesias or tremor HEMATOLOGICAL: +anemia SKIN: right femur incision PSYCHIATRIC: Unremarkable All other review of systems found to be negative. PAST MEDICAL HISTORY: as per HPI PAST SURGICAL HISTORY: as per HPI and Left hip TKR ALLERGIES: Please see below. MEDICATIONS: Please see below. FAMILY HISTORY: Kidney cancer and cancer SOCIAL HISTORY: Occasional etoh/former smoker/no illicit drugs DIET: regular PHYSICAL EXAMINATION: VITAL SIGNS: Please see below. GENERAL: Pleasant and cooperative. No acute distress. pale HEENT: PERRL. Extraocular movements intact. Clear conjunctiva CARDIOVASCULAR: Regular rate and rhythm. No murmurs, rubs, or gallops LUNGS: Clear to auscultation bilaterally. No wheezes. No rhonchi ABDOMEN: Soft, nontender, nondistended. Positive bowel sounds. Normal active bowel sounds NEUROLOGICAL: Alert and oriented times three. Cranial nerves II through XII grossly intact. Sensation grossly intact EXTREMITIES: 5\5 strength bilateral upper extremities. 5\5 strength right ankle DF/EHL/PF and >3/5 hip flexion (limited due to recent surgery) 5/5 strength in left lower extremity. SKIN: right femur incision c/d/i LABORATORY DATA: Please see below. IMAGING: Imaging documentation personally reviewed by record FUNCTIONAL STATUS: Premorbid: Independent with all activities of daily life as well as mobility On Admission: Contact guard-min assist for ambulation 5 feet, functional transfers, toileting, dressing GOALS: Mod-I community household distances, functional transfers, bed mobility, dressing, bathing, toileting ASSESSMENT:84-year-old F with past medical history of osteoporosis who presents status post fall with right femur fracture PLAN: 1. Rehab- PT/OT advance gait and ADLs, strengthen/stretch/maintain ROM all4 limbs 2. cardiac- hx of HTN c/u Cozaar and HCTZ- medicine consulted to assist in overall management -HLD c/u statin 3. Resp- monitor for infection, encourage incentive spirometry 4. Heme- patient with post-op blood loss anemia, consider transfusion if Hgb <8 or if symptomatic 5. Ortho- s/p right femur ORIF WBAT, ortho consulted 6. GI ppx- protonix 7. DVT ppx- xarelto and teds 8. Pain- tylenol and tramadol 9. Dispo tbd 10. Code- patient requesting DNR/DNI POST ADMISSION PHYSICIAN EVALUATION: Medical and functional status: Description of medical status, medical assessment: As above. Rehabilitation diagnosis and current and prior cold morbid medical conditions as above. Risk of complications and plans to mitigate them as above. Description of functional status current status is as above. Prior status as above. Status compared to preadmission: There are no clinically significant differences between the patient's current status and the information described on the preadmission screening document. Treatment plan anticipated: Treatment plan is as described above. Required disciplines including physical therapy, occupational therapy, others as noted above Intensity of services: 3 hours a day, 6 days a week. Special considerations: There are no specific special or safety considerations that would likely preclude immediate implementation of an intensive rehabilitation program or subsequently influence the plan of care ATTESTATION: Considering all the information above, it is my best judgment that this patient requires intensive rehabilitation therapy as described above and an inpatient hospital environment due to the complexity of nursing, medical, and rehabilitation needs required by the patient. Furthermore, this patient can reasonably be expected to participate in an benefit from an inpatient rehabilitation stay with an interdisciplinary team approach to the delivery of rehabilitation care under the direction and supervision of rehabilitation physician. PROGNOSIS: Excellent ESTIMATED LENGTH OF STAY:12-16 days. PROJECTED DISCHARGE DESTINATION: Home with family support and any durable medical equipment required to increase functional safety and mobility TIME SPENT COUNSELING AND COORDINATING INITIAL CARE: Greater than 70 minutes. Vital Signs Vital Signs Date Time Temp Pulse Resp B/P (MAP) Pulse Ox O2 Delivery O2 Flow Rate FiO2 06/10/20 15:55 97.9 103 18 128/56 (80) 97 Room Air Home Medications Scheduled Aspirin (Aspir 81) 81 Mg Tablet.dr, 81 MG PO BID, (Reported) Brinzolamide (Azopt) 1% 10ML Drops.susp, 1 DROP OS BID, (Reported) Calcium Carbonate (Calcium) 600 Mg Tablet, 600 MG PO BID, (Reported) Esomeprazole Magnesium (Nexium 24Hr) 20 Mg Tablet.dr, 20 MG PO DAILY, (Reported) Hydrochlorothiazide (Hydrochlorothiazide) 25 Mg Tablet, 25 MG PO DAILY, (Reported) Iron Fum,Ag/C/B12/Folic/Ca/Suc (Multigen Plus Caplet) 1 Each Tablet, 1 TAB PO DAILY, (Reported) Losartan Potassium (Losartan Potassium) 100 Mg Tablet, 100 MG PO DAILY, (Reported) Potassium Chloride (Potassium Chloride) 10 Meq Capsule.er, 10 MEQ PO BID, (Reported) Pravastatin Sodium (Pravastatin Sodium) 40 Mg Tablet, 40 MG PO DAILY, (Reported) Rivaroxaban (Xarelto) 10 Mg Tablet, 10 MG PO DAILY@18 Travoprost (Travoprost) 2.5 Ml Drops, 1 DROP OU QHS, (Reported) Trazodone HCl (Trazodone HCl) 50 Mg Tablet, 25 MG PO QHS Scheduled PRN Acetaminophen (Acetaminophen) 500 Mg Tablet, 1,000 MG PO Q8H PRN for PAIN / FEVER Calcium Carbonate (Calcium Carbonate) 200 Mg Tab.chew, 1,000 MG PO Q8HP PRN for HEARTBURN Magnesium Hydroxide (Milk of Magnesia) 400 Mg/5 Ml Oral.susp, 30 ML PO DAILYPRN PRN for CONSTIPATION Polyethylene Glycol 3350 (Polyethylene Glycol 3350) 17 Gm Powd.pack, 1 PKT PO DAILYPRN PRN for CONSTIPATION Tramadol HCl (Tramadol HCl) 50 Mg Tablet, 50 MG PO Q4HP PRN for MODERATE PAIN (PS 5-7) Allergies Coded Allergies: No Known Drug Allergies (Verified Allergy, Unknown, 06/07/20) A-FIB/CHADSVASC A-FIB History Current/History of A-Fib/PAF?: No JOSE VILLEDA MD Jun 10, 2020 14:18
[2020-06-10] MEDS ORDERED: traMADol 50 MG TAB PO PRN (14:30)
[2020-06-10] MEDS ORDERED: CALCIUM CARBONATE 500 MG CHEW U/D PO PRN (14:30)
[2020-06-10 15:55] VITALS: BP 128/56
[2020-06-10] MEDS: GABAPENTIN 100 MG CAP PO SCH ×2 (16:30→20:54)
[2020-06-10] MEDS: ACETAMINOPHEN 500 MG TAB PO SCH ×2 (16:30→20:56)
[2020-06-10] MEDS: RIVAROXABAN 10 MG TAB (XARELTO) PO SCH (17:38)
[2020-06-10 20:15] VITALS: BP 137/62
[2020-06-10] MEDS: DOCUSATE SODIUM 100 MG CAP PO SCH (20:53)
[2020-06-10] MEDS: SENNA 8.6 MG TAB (SENOKOT) PO SCH (20:53)
[2020-06-10] MEDS: POTASSIUM CHLORIDE 10 MEQ SR TABLET PO SCH (20:54)
[2020-06-10] MEDS: traZODone 25MG PER 1/2 TABLET PO SCH (20:54)
[2020-06-10] MEDS: LATANOPROST 0.005% OPHTH SOLN 2.5 ML OU SCH (20:56)
[2020-06-10] MEDS: BRINZOLAMIDE 1 % OPHTH SUSP (AZOPT) 10ML OS SCH (20:56)
[2020-06-11] VITALS (11 sets, daily range): BP systolic 110–154; BP diastolic 55–89
[2020-06-11 06:14] LABS: BASO # 0.1 10^3/uL (0.0-0.2); BASO % 0.6 % (0.0-1.0); EOS # 0.3 10^3/uL (0.0-0.5); EOS % 3.1 % (0.0-3.0); HEMATOCRIT 28.1 % (36.0-47.0); HEMOGLOBIN 8.9 g/dl (12.0-15.5); LYMPH # 1.9 10^3/uL (1.5-5.0); LYMPH % 19.7 % (24.0-44.0); MEAN CORPUSCULAR HEMOGLOBIN 32.5 pg (27.0-33.0); MEAN CORPUSCULAR HGB CONC 31.7 g/dl (32.0-36.5); MEAN CORPUSCULAR VOLUME 102.6 fl (80.0-96.0); MONO # 1.3 10^3/uL (0.0-0.8); MONO % 13.9 % (0.0-5.0); NEUTROPHILS # 5.9 10^3/uL (1.5-8.5); NEUTROPHILS % 61.9 % (36.0-66.0); PLATELET COUNT, AUTOMATED 277 10^3/uL (150-450); RED BLOOD COUNT 2.74 10^6/uL (4.00-5.40); WHITE BLOOD COUNT 9.5 10^3/uL (4.0-10.0)
[2020-06-11 06:37] LABS: ALBUMIN 2.4 GM/DL (3.2-5.2); BILIRUBIN,TOTAL 0.7 MG/DL (0.2-1.0); CALCIUM LEVEL 8.6 MG/DL (8.8-10.2); CREATININE FOR GFR 0.96 MG/DL (0.55-1.30); GLOMERULAR FILTRATION RATE 58.9 (>32); POTASSIUM SERUM 3.7 MEQ/L (3.5-5.1); TOTAL PROTEIN 6.4 GM/DL (6.4-8.2)
[2020-06-11] MEDS: GABAPENTIN 100 MG CAP PO SCH (08:35)
[2020-06-11] MEDS: PRAVASTATIN 20 MG TAB PO SCH (08:35)
[2020-06-11] MEDS: FERROUS GLUCONATE 324 MG TAB PO SCH (08:35)
[2020-06-11] MEDS: ACETAMINOPHEN 500 MG TAB PO SCH ×3 (08:36→21:16)
[2020-06-11] MEDS: POTASSIUM CHLORIDE 10 MEQ SR TABLET PO SCH ×2 (08:36→19:54)
[2020-06-11] MEDS: PANTOPRAZOLE 40MG TAB (PROTONIX) PO SCH (08:37)
[2020-06-11] MEDS: DOCUSATE SODIUM 100 MG CAP PO SCH ×2 (08:37→19:53)
[2020-06-11] MEDS: BRINZOLAMIDE 1 % OPHTH SUSP (AZOPT) 10ML OS SCH ×2 (08:40→19:53)
[2020-06-11] MEDS ORDERED: LOSARTAN 50MG TABLET PO SCH (09:00)
[2020-06-11] MEDS ORDERED: FLUBLOK(EGG FREE)(QUAD)INFLUENZA VACC 0.5ML SYRINGE 18YRS & OLDER IM ONE (09:00)
[2020-06-11] MEDS ORDERED: hydroCHLOROthiazide 25 MG TAB PO SCH (09:00)
[2020-06-11] MEDS ORDERED: FUROSEMIDE 20MG/2ML VIAL (J1940) IV ONE (14:00)
[2020-06-11] MEDS ORDERED: diphenhydrAMINE 25MG CAP PO ONE (14:00)
[2020-06-11] MEDS ORDERED: ACETAMINOPHEN TAB 650MG DOSE (2X325MG) PO ONE (14:00)
--- NOTE | 2020-06-11 14:41 | IPNPDOC ---
PM&R Progress Note DATE OF SERVICE: Jun 11, 2020 Admitting Office Escort Progress Note Subjective: PAtient reporting she felt dizzy and light headed in therapy after exerting herself and very weak. She denies chest pain or palpitations. She is agreeable to receiving blood transfusion. REVIEW OF SYSTEMS: The following is a completed review of systems and has been reviewed. Review of systems otherwise unremarkable. PAIN: Patient self reports right leg pain EYES: No recent vision changes EARS, NOSE, & THROAT: No throat pain, or dysphagia, or rhinorrhea CARDIOVASCULAR: Denies chest pain or palpitations PULMONARY: Denies shortness of breath GASTROINTESTINAL: Denies constipation/diarrhea GENITOURINARY: denies dysuria MUSCULOSKELETAL: right femur fracture NEUROLOGICAL:denies paresthesias or tremor HEMATOLOGICAL: +anemia SKIN: right femur incision PSYCHIATRIC: Unremarkable All other review of systems found to be negative. PHYSICAL EXAMINATION: VITAL SIGNS: Please see below. GENERAL: Pleasant and cooperative. No acute distress. pale HEENT: PERRL. Extraocular movements intact. Clear conjunctiva CARDIOVASCULAR: Regular rate and rhythm. No murmurs, rubs, or gallops LUNGS: Clear to auscultation bilaterally. No wheezes. No rhonchi ABDOMEN: Soft, nontender, nondistended. Positive bowel sounds. Normal active bowel sounds NEUROLOGICAL: Alert and oriented times three. Cranial nerves II through XII grossly intact. Sensation grossly intact EXTREMITIES: 5\5 strength bilateral upper extremities. 5\5 strength right ankle DF/EHL/PF and >3/5 hip flexion (limited due to recent surgery) 5/5 strength in left lower extremity. SKIN: right femur incision c/d/i ASSESSMENT:84-year-old F with past medical history of osteoporosis who presents status post fall with right femur fracture PLAN: 1. Rehab- PT/OT advance gait and ADLs, strengthen/stretch/maintain ROM all 4 limbs 2. cardiac- hx of HTN, holding Cozaar and HCTZ for today as patient with episode of light headedness in therapy- medicine consulted to assist in overall management -HLD c/u statin 3. Resp- monitor for infection, encourage incentive spirometry 4. Heme- patient with post-op blood loss anemia, Hgb below 9 and patient pale with episodes of light headedness and weakness in therapy, will transfuse 2 units rbcs 5. Ortho- s/p right femur ORIF WBAT, ortho consulted 6. GI ppx- protonix 7. DVT ppx- xarelto and teds 8. Pain- tylenol, tramadol on hold for garth given dizziness in therapy 9. Dispo tbd 10. Code- patient requesting DNR/DNI Allergies Coded Allergies: No Known Drug Allergies (Verified Allergy, Unknown, 06/07/20) Vital Signs Vital Signs Date Time Temp Pulse Resp B/P (MAP) Pulse Ox O2 Delivery O2 Flow Rate FiO2 06/11/20 14:00 98.5 90 18 124/66 (85) 100 Room Air Laboratory Data CBC/BMP Laboratory Tests 06/11/20 05:57 Labs 24H Laboratory Tests 2 06/11/20 05:57: Immature Granulocyte % (Auto) 0.8, Neutrophils (%) (Auto) 61.9, Lymphocytes (%) (Auto) 19.7L, Monocytes (%) (Auto) 13.9H, Eosinophils (%) (Auto) 3.1H, Basophils (%) (Auto) 0.6, Neutrophils # (Auto) 5.9, Lymphocytes # (Auto) 1.9, Monocytes # (Auto) 1.3H, Eosinophils # (Auto) 0.3, Basophils # (Auto) 0.1, Nucleated Red Blood Cells % (auto) 0.0, Anion Gap 6L, Glomerular Filtration Rate 58.9, Calcium Level 8.6L, Total Bilirubin 0.7#, Aspartate Amino Transf (AST/SGOT) 24, Alanine Aminotransferase (ALT/SGPT) 13, Alkaline Phosphatase 31L, Total Protein 6.4, Albumin 2.4L, Albumin/Globulin Ratio 0.6L Current Medications Current Medications Current Medications Medications (Trade) Dose Ordered Sig/Buster Route PRN Reason Start Time Stop Time Status Last Admin Dose Admin Acetaminophen (Tylenol Tab) 1,000 mg TID PO 06/10/20 16:00 06/11/20 08:36 Brinzolamide (Azopt) 1 drop BID OS 06/10/20 21:00 06/11/20 08:40 Calcium Carbonate (Tums) 1,000 mg Q4HP PRN PO HEARTBURN 06/10/20 14:30 Docusate Sodium (Colace) 100 mg BID PO 06/10/20 21:00 06/10/20 20:53 Ferrous Gluconate (Fergon) 324 mg DAILY PO 06/11/20 09:00 06/11/20 08:35 Gabapentin (Neurontin) 100 mg TID PO 06/10/20 16:00 06/11/20 10:45 DC 06/11/20 08:35 Hydrochlorothiazide (Hydrodiuril) 25 mg DAILY PO 06/11/20 09:00 06/11/20 10:45 DC 06/11/20 08:35 Latanoprost (Xalatan 0.005% Op Soln) 1 drop QHS OU 06/10/20 21:00 06/10/20 20:56 Losartan Potassium (Cozaar) 100 mg DAILY PO 06/11/20 09:00 06/11/20 10:45 DC 06/11/20 08:37 Pantoprazole Sodium (Protonix) 40 mg DAILY PO 06/11/20 09:00 06/11/20 08:37 Potassium Chloride (Micro-K Extencaps) 10 meq BID PO 06/10/20 21:00 06/11/20 08:36 Pravastatin Sodium (Pravachol) 40 mg DAILY PO 06/11/20 09:00 06/11/20 08:35 Rivaroxaban (Xarelto) 10 mg DAILY@1800 PO 06/10/20 18:00 06/10/20 17:38 Senna (Senokot) 1 tab QHS PO 06/10/20 21:00 06/10/20 20:53 Tramadol HCl (Ultram) 50 mg Q4HP PRN PO MODERATE PAIN (PS 5-7) 06/10/20 14:30 06/11/20 10:45 DC 06/10/20 23:42 Trazodone HCl (Desyrel) 25 mg QHS PO 06/10/20 21:00 06/10/20 20:54 JOSE VILLEDA MD Jun 11, 2020 14:41
[2020-06-11] MEDS: RIVAROXABAN 10 MG TAB (XARELTO) PO SCH (17:18)
[2020-06-11] MEDS: LATANOPROST 0.005% OPHTH SOLN 2.5 ML OU SCH (19:53)
[2020-06-11] MEDS: SENNA 8.6 MG TAB (SENOKOT) PO SCH (19:53)
[2020-06-11] MEDS: traZODone 25MG PER 1/2 TABLET PO SCH (21:16)
[2020-06-12 00:29] VITALS: BP 137/64
[2020-06-12 06:32] VITALS: BP 163/68
[2020-06-12] MEDS: PANTOPRAZOLE 40MG TAB (PROTONIX) PO SCH (07:34)
[2020-06-12] MEDS: FERROUS GLUCONATE 324 MG TAB PO SCH (07:34)
[2020-06-12] MEDS: POTASSIUM CHLORIDE 10 MEQ SR TABLET PO SCH ×2 (07:34→20:59)
[2020-06-12] MEDS: ACETAMINOPHEN 500 MG TAB PO SCH ×3 (07:35→20:59)
[2020-06-12] MEDS: BRINZOLAMIDE 1 % OPHTH SUSP (AZOPT) 10ML OS SCH ×2 (07:35→21:00)
[2020-06-12] MEDS: DOCUSATE SODIUM 100 MG CAP PO SCH ×2 (07:35→21:00)
[2020-06-12] MEDS: PRAVASTATIN 20 MG TAB PO SCH (07:35)
[2020-06-12 08:03] LABS: BASO # 0.1 10^3/uL (0.0-0.2); BASO % 0.7 % (0.0-1.0); EOS # 0.3 10^3/uL (0.0-0.5); HEMATOCRIT 38.6 % (36.0-47.0); LYMPH # 1.8 10^3/uL (1.5-5.0); LYMPH % 18.6 % (24.0-44.0); MEAN CORPUSCULAR HEMOGLOBIN 30.8 pg (27.0-33.0); MEAN CORPUSCULAR HGB CONC 32.6 g/dl (32.0-36.5); MEAN CORPUSCULAR VOLUME 94.4 fl (80.0-96.0); MONO # 1.1 10^3/uL (0.0-0.8); MONO % 11.6 % (0.0-5.0); NEUTROPHILS # 6.2 10^3/uL (1.5-8.5); NEUTROPHILS % 65.5 % (36.0-66.0); PLATELET COUNT, AUTOMATED 339 10^3/uL (150-450); RED BLOOD COUNT 4.09 10^6/uL (4.00-5.40); WHITE BLOOD COUNT 9.5 10^3/uL (4.0-10.0)
[2020-06-12 08:10] LABS: HEMOGLOBIN 12.6 g/dl (12.0-15.5)
--- NOTE | 2020-06-12 08:24 | CR ---
DATE OF CONSULTATION: 06/11/2020 HISTORY OF PRESENT ILLNESS: This is a hospitalist generated consultation on this patient who was hospitalized onto the Hospitalist Service 06/07-06/10 for a right midshaft femoral fracture. Hospital course was uncomplicated. PAST MEDICAL HISTORY: 1. Hypertension. 2. Hyperlipidemia. 3. GERD. 4. History of glaucoma. PAST SURGICAL HISTORY: Left hip replacement. FAMILY HISTORY: Father had unknown cancer. Mother had kidney cancer. SOCIAL HISTORY: Nonsmoker. No alcohol. REVIEW OF SYSTEMS: No fever, chills, night sweats, chest pain, shortness of breath, or dyspnea on exertion. PHYSICAL EXAMINATION: Vital signs stable, 128/60. Alert, conversant, no distress. Lungs: Clear. Heart: Regular rhythm. Abdomen: Soft, nontender. Normal pulses. Normal strength in the arms and legs. MEDICATIONS: Medications were reviewed. LABORATORY DATA: Labs were reviewed. They were stable. IMPRESSION/PLAN: 1. Hypertension: Well controlled on current regimen. 2. Hyperlipidemia: Continue the current dose of pravastatin. 3. Recent femoral fracture: DVT prophylaxis with Xarelto has been ordered. 4. Postop anemia: Continue iron supplementation. Hospitalist Group is available if there are any medical problems that arise during her ARU admission. KATHERINE
[2020-06-12 08:35] LABS: CALCIUM LEVEL 8.8 MG/DL (8.8-10.2); CREATININE FOR GFR 0.99 MG/DL (0.55-1.30); GLOMERULAR FILTRATION RATE 56.9 (>32); POTASSIUM SERUM 3.9 MEQ/L (3.5-5.1)
[2020-06-12] MEDS ORDERED: FLUBLOK(EGG FREE)(QUAD)INFLUENZA VACC 0.5ML SYRINGE 18YRS & OLDER IM ONE (09:00)
[2020-06-12 12:05] VITALS: BP 129/60
[2020-06-12] MEDS: hydroCHLOROthiazide 25 MG TAB PO SCH (12:07)
[2020-06-12] MEDS: LOSARTAN 50MG TABLET PO SCH (12:08)
[2020-06-12 14:00] VITALS: BP 144/74
--- NOTE | 2020-06-12 14:37 | IPNPDOC ---
PM&R Progress Note DATE OF SERVICE: Jun 12, 2020 [facility] Teacher Progress Note Subjective: PAtient reporting she feels much better today after having received 2 units of blood and the pain in her right ankle is better despite some swelling. REVIEW OF SYSTEMS: The following is a completed review of systems and has been reviewed. Review of systems otherwise unremarkable. PAIN: Patient self reports right leg pain EYES: No recent vision changes EARS, NOSE, & THROAT: No throat pain, or dysphagia, or rhinorrhea CARDIOVASCULAR: Denies chest pain or palpitations PULMONARY: Denies shortness of breath GASTROINTESTINAL: Denies constipation/diarrhea GENITOURINARY: denies dysuria MUSCULOSKELETAL: right femur fracture NEUROLOGICAL:denies paresthesias or tremor HEMATOLOGICAL: +anemia (improved) SKIN: right femur incision PSYCHIATRIC: Unremarkable All other review of systems found to be negative. PHYSICAL EXAMINATION: VITAL SIGNS: Please see below. GENERAL: Pleasant and cooperative. No acute distress. pale HEENT: PERRL. Extraocular movements intact. Clear conjunctiva CARDIOVASCULAR: Regular rate and rhythm. No murmurs, rubs, or gallops LUNGS: Clear to auscultation bilaterally. No wheezes. No rhonchi ABDOMEN: Soft, nontender, nondistended. Positive bowel sounds. Normal active bowel sounds NEUROLOGICAL: Alert and oriented times three. Cranial nerves II through XII grossly intact. Sensation grossly intact EXTREMITIES: 5\5 strength bilateral upper extremities. 5\5 strength right ankle DF/EHL/PF and >3/5 hip flexion (limited due to recent surgery) 5/5 strength in left lower extremity. SKIN: right femur incision c/d/i (-) Ruiz's bilat (+) right ankle swelling, mild TTP ASSESSMENT:84-year-old F with past medical history of osteoporosis who presents status post fall with right femur fracture PLAN: 1. Rehab- PT/OT advance gait and ADLs, strengthen/stretch/maintain ROM all 4 limbs, ambulating with RW 2. cardiac- hx of HTN,will add back home BP medswith holding parameters now that patient less dizzy after blood transfusion- medicine consulted to assist in overall management -HLD c/u statin 3. Resp- monitor for infection, encourage incentive spirometry 4. Heme- patient with post-op blood loss anemia, with symptomatic anemia, s/p 2 untis rbc with improvemenf of Hgb up to 12.6, patient staes she did not feel light headed today in therapy and has more energy 5. Ortho- s/p right femur ORIF WBAT, ortho consulted 6. GI ppx- protonix 7. DVT ppx- xarelto and teds 8. Pain- tylenol, c/u to hold tramadol as patient states her pain is well enough controlled 9. Dispo tbd 10. Code- DNR/DNI Allergies Coded Allergies: No Known Drug Allergies (Verified Allergy, Unknown, 06/07/20) Vital Signs Vital Signs Date Time Temp Pulse Resp B/P (MAP) Pulse Ox O2 Delivery O2 Flow Rate FiO2 06/12/20 12:08 129/60 06/12/20 12:05 89 06/12/20 06:32 97.7 18 96 Room Air Laboratory Data CBC/BMP Laboratory Tests 06/12/20 07:06 Labs 24H Laboratory Tests 2 06/12/20 07:06: Immature Granulocyte % (Auto) 0.6, Neutrophils (%) (Auto) 65.5, Lymphocytes (%) (Auto) 18.6L, Monocytes (%) (Auto) 11.6H, Eosinophils (%) (Auto) 3.0, Basophils (%) (Auto) 0.7, Neutrophils # (Auto) 6.2, Lymphocytes # (Auto) 1.8, Monocytes # (Auto) 1.1H, Eosinophils # (Auto) 0.3, Basophils # (Auto) 0.1, Nucleated Red Blood Cells % (auto) 0.0, Anion Gap 9, Glomerular Filtration Rate 56.9, Calcium Level 8.8 Current Medications Current Medications Current Medications Medications (Trade) Dose Ordered Sig/Buster Route PRN Reason Start Time Stop Time Status Last Admin Dose Admin Acetaminophen (Tylenol Tab) 1,000 mg TID PO 06/10/20 16:00 06/12/20 07:35 Brinzolamide (Azopt) 1 drop BID OS 06/10/20 21:00 06/12/20 07:35 Calcium Carbonate (Tums) 1,000 mg Q4HP PRN PO HEARTBURN 06/10/20 14:30 Docusate Sodium (Colace) 100 mg BID PO 06/10/20 21:00 06/11/20 19:53 Ferrous Gluconate (Fergon) 324 mg DAILY PO 06/11/20 09:00 06/12/20 07:34 Gabapentin (Neurontin) 100 mg TID PO 06/10/20 16:00 06/11/20 10:45 DC 06/11/20 08:35 Hydrochlorothiazide (Hydrodiuril) 25 mg DAILY PO 06/11/20 09:00 06/11/20 10:45 DC 06/11/20 08:35 Hydrochlorothiazide (Hydrodiuril) 25 mg DAILY PO 06/12/20 09:00 06/12/20 12:07 Latanoprost (Xalatan 0.005% Op Soln) 1 drop QHS OU 06/10/20 21:00 06/11/20 19:53 Losartan Potassium (Cozaar) 100 mg DAILY PO 06/11/20 09:00 06/11/20 10:45 DC 06/11/20 08:37 Losartan Potassium (Cozaar) 100 mg DAILY PO 06/12/20 09:00 06/12/20 12:08 Pantoprazole Sodium (Protonix) 40 mg DAILY PO 06/11/20 09:00 06/12/20 07:34 Potassium Chloride (Micro-K Extencaps) 10 meq BID PO 06/10/20 21:00 06/12/20 07:34 Pravastatin Sodium (Pravachol) 40 mg DAILY PO 06/11/20 09:00 06/12/20 07:35 Rivaroxaban (Xarelto) 10 mg DAILY@1800 PO 06/10/20 18:00 06/11/20 17:18 Senna (Senokot) 1 tab QHS PO 06/10/20 21:00 06/11/20 19:53 Tramadol HCl (Ultram) 50 mg Q4HP PRN PO MODERATE PAIN (PS 5-7) 06/10/20 14:30 06/11/20 10:45 DC 06/10/20 23:42 Trazodone HCl (Desyrel) 25 mg QHS PO 06/10/20 21:00 06/11/20 21:16 JOSE VILLEDA MD Jun 12, 2020 14:21
[2020-06-12] MEDS: RIVAROXABAN 10 MG TAB (XARELTO) PO SCH (16:55)
[2020-06-12 20:00] VITALS: BP 130/62
[2020-06-12] MEDS: traZODone 25MG PER 1/2 TABLET PO SCH (20:59)
[2020-06-12] MEDS: SENNA 8.6 MG TAB (SENOKOT) PO SCH (21:00)
[2020-06-12] MEDS: LATANOPROST 0.005% OPHTH SOLN 2.5 ML OU SCH (21:00)
[2020-06-13 06:14] VITALS: BP 139/66
[2020-06-13] MEDS: DOCUSATE SODIUM 100 MG CAP PO SCH ×2 (09:00→20:48)
[2020-06-13] MEDS: ACETAMINOPHEN 500 MG TAB PO SCH ×3 (09:05→20:48)
[2020-06-13] MEDS: PRAVASTATIN 20 MG TAB PO SCH (09:06)
[2020-06-13] MEDS: PANTOPRAZOLE 40MG TAB (PROTONIX) PO SCH (09:06)
[2020-06-13] MEDS: FERROUS GLUCONATE 324 MG TAB PO SCH (09:06)
[2020-06-13] MEDS: POTASSIUM CHLORIDE 10 MEQ SR TABLET PO SCH ×2 (09:06→20:49)
[2020-06-13] MEDS: hydroCHLOROthiazide 25 MG TAB PO SCH (09:06)
[2020-06-13] MEDS: LOSARTAN 50MG TABLET PO SCH (09:06)
[2020-06-13] MEDS: BRINZOLAMIDE 1 % OPHTH SUSP (AZOPT) 10ML OS SCH ×2 (09:07→20:49)
[2020-06-13 14:00] VITALS: BP 116/58
[2020-06-13] MEDS: RIVAROXABAN 10 MG TAB (XARELTO) PO SCH (16:53)
[2020-06-13 20:00] VITALS: BP 126/60
[2020-06-13] MEDS: traZODone 25MG PER 1/2 TABLET PO SCH (20:48)
[2020-06-13] MEDS: LATANOPROST 0.005% OPHTH SOLN 2.5 ML OU SCH (20:49)
[2020-06-13] MEDS: SENNA 8.6 MG TAB (SENOKOT) PO SCH (20:49)
[2020-06-14 05:53] VITALS: BP 139/62
[2020-06-14 07:07] LABS: BASO # 0.1 10^3/uL (0.0-0.2); BASO % 0.6 % (0.0-1.0); EOS # 0.2 10^3/uL (0.0-0.5); EOS % 2.4 % (0.0-3.0); HEMATOCRIT 38.4 % (36.0-47.0); HEMOGLOBIN 12.5 g/dl (12.0-15.5); LYMPH # 1.6 10^3/uL (1.5-5.0); LYMPH % 16.4 % (24.0-44.0); MEAN CORPUSCULAR HEMOGLOBIN 31.3 pg (27.0-33.0); MEAN CORPUSCULAR HGB CONC 32.6 g/dl (32.0-36.5); MONO # 1.1 10^3/uL (0.0-0.8); NEUTROPHILS # 6.9 10^3/uL (1.5-8.5); NEUTROPHILS % 68.8 % (36.0-66.0); PLATELET COUNT, AUTOMATED 384 10^3/uL (150-450)
[2020-06-14 07:16] LABS: BLOOD UREA NITROGEN 24 MG/DL (7-18); CALCIUM LEVEL 8.6 MG/DL (8.8-10.2); CARBON DIOXIDE LEVEL 26 MEQ/L (21-32); CHLORIDE LEVEL 107 MEQ/L (98-107); CREATININE FOR GFR 0.84 MG/DL (0.55-1.30); GLOMERULAR FILTRATION RATE > 60.0 (>32); GLUCOSE, FASTING 103 MG/DL (70-100); POTASSIUM SERUM 3.9 MEQ/L (3.5-5.1); SODIUM LEVEL 140 MEQ/L (136-145)
[2020-06-14] MEDS: PRAVASTATIN 20 MG TAB PO SCH (08:52)
[2020-06-14] MEDS: ACETAMINOPHEN 500 MG TAB PO SCH ×3 (08:52→20:30)
[2020-06-14 08:53] VITALS: BP 139/62
[2020-06-14] MEDS: FERROUS GLUCONATE 324 MG TAB PO SCH (08:53)
[2020-06-14] MEDS: PANTOPRAZOLE 40MG TAB (PROTONIX) PO SCH (08:53)
[2020-06-14] MEDS: POTASSIUM CHLORIDE 10 MEQ SR TABLET PO SCH ×2 (08:53→20:30)
[2020-06-14] MEDS: LOSARTAN 50MG TABLET PO SCH (08:53)
[2020-06-14] MEDS: DOCUSATE SODIUM 100 MG CAP PO SCH ×2 (08:53→20:30)
[2020-06-14] MEDS: hydroCHLOROthiazide 25 MG TAB PO SCH (08:53)
[2020-06-14] MEDS: BRINZOLAMIDE 1 % OPHTH SUSP (AZOPT) 10ML OS SCH ×2 (09:23→21:41)
--- NOTE | 2020-06-14 11:55 | IPNPDOC ---
PM&R Progress Note DATE OF SERVICE: Jun 13, 2020 Physiognomist Progress Note Subjective: PAtient reporting she feels well today and that her pain is well controlled. REVIEW OF SYSTEMS: The following is a completed review of systems and has been reviewed. Review of systems otherwise unremarkable. PAIN: Patient self reports right leg pain EYES: No recent vision changes EARS, NOSE, & THROAT: No throat pain, or dysphagia, or rhinorrhea CARDIOVASCULAR: Denies chest pain or palpitations PULMONARY: Denies shortness of breath GASTROINTESTINAL: Denies constipation/diarrhea GENITOURINARY: denies dysuria MUSCULOSKELETAL: right femur fracture NEUROLOGICAL:denies paresthesias or tremor HEMATOLOGICAL: +anemia (improved) SKIN: right femur incision PSYCHIATRIC: Unremarkable All other review of systems found to be negative. PHYSICAL EXAMINATION: VITAL SIGNS: Please see below. GENERAL: Pleasant and cooperative. No acute distress. pale HEENT: PERRL. Extraocular movements intact. Clear conjunctiva CARDIOVASCULAR: Regular rate and rhythm. No murmurs, rubs, or gallops LUNGS: Clear to auscultation bilaterally. No wheezes. No rhonchi ABDOMEN: Soft, nontender, nondistended. Positive bowel sounds. Normal active bowel sounds NEUROLOGICAL: Alert and oriented times three. Cranial nerves II through XII grossly intact. Sensation grossly intact EXTREMITIES: 5\5 strength bilateral upper extremities. 5\5 strength right ankle DF/EHL/PF and >3/5 hip flexion (limited due to recent surgery) 5/5 strength in left lower extremity. SKIN: right femur incision c/d/i (-) Ruiz's bilat (+) right ankle swelling, mild TTP ASSESSMENT:84-year-old F with past medical history of osteoporosis who presents status post fall with right femur fracture PLAN: 1. Rehab- PT/OT advance gait and ADLs, strengthen/stretch/maintain ROM all 4 limbs, ambulating with RW 2. cardiac- hx of HTN,c/u home BP meds with holding parameters- medicine consulted to assist in overall management -HLD c/u statin 3. Resp- monitor for infection, encourage incentive spirometry 4. Heme- patient with post-op blood loss anemia, with symptomatic anemia, s/p 2 untis rbc with improvemenf of Hgb up to 12.6, patient states she continuse to not feel light headed 5. Ortho- s/p right femur ORIF WBAT, ortho consulted 6. GI ppx- protonix 7. DVT ppx- xarelto and teds 8. Pain- tylenol, c/u to hold tramadol as patient states her pain is well enough controlled 9. Dispo- next week most likely, progressing towards goals 10. Code- DNR/DNI Allergies Coded Allergies: No Known Drug Allergies (Verified Allergy, Unknown, 06/07/20) Vital Signs Vital Signs Date Time Temp Pulse Resp B/P (MAP) Pulse Ox O2 Delivery O2 Flow Rate FiO2 06/14/20 08:53 139/62 06/14/20 05:53 98.2 85 18 95 Room Air Laboratory Data CBC/BMP Laboratory Tests 06/14/20 06:27 Labs 24H Laboratory Tests 2 06/14/20 06:27: Immature Granulocyte % (Auto) 0.8, Neutrophils (%) (Auto) 68.8H, Lymphocytes (%) (Auto) 16.4L, Monocytes (%) (Auto) 11.0H, Eosinophils (%) (Auto) 2.4, Basophils (%) (Auto) 0.6, Neutrophils # (Auto) 6.9, Lymphocytes # (Auto) 1.6, Monocytes # (Auto) 1.1H, Eosinophils # (Auto) 0.2, Basophils # (Auto) 0.1, Nucleated Red Blood Cells % (auto) 0.0, Anion Gap 7L, Glomerular Filtration Rate > 60.0, Calcium Level 8.6L Current Medications Current Medications Current Medications Medications (Trade) Dose Ordered Sig/Buster Route PRN Reason Start Time Stop Time Status Last Admin Dose Admin Acetaminophen (Tylenol Tab) 1,000 mg TID PO 06/10/20 16:00 06/14/20 08:52 Brinzolamide (Azopt) 1 drop BID OS 06/10/20 21:00 06/14/20 09:23 Calcium Carbonate (Tums) 1,000 mg Q4HP PRN PO HEARTBURN 06/10/20 14:30 Docusate Sodium (Colace) 100 mg BID PO 06/10/20 21:00 06/14/20 08:53 Ferrous Gluconate (Fergon) 324 mg DAILY PO 06/11/20 09:00 06/14/20 08:53 Gabapentin (Neurontin) 100 mg TID PO 06/10/20 16:00 06/11/20 10:45 DC 9/29/20 08:35 Hydrochlorothiazide (Hydrodiuril) 25 mg DAILY PO 06/11/20 09:00 06/11/20 10:45 DC 06/11/20 08:35 Hydrochlorothiazide (Hydrodiuril) 25 mg DAILY PO 06/12/20 09:00 06/14/20 08:53 Latanoprost (Xalatan 0.005% Op Soln) 1 drop QHS OU 06/10/20 21:00 06/13/20 20:49 Losartan Potassium (Cozaar) 100 mg DAILY PO 06/11/20 09:00 06/11/20 10:45 DC 06/11/20 08:37 Losartan Potassium (Cozaar) 100 mg DAILY PO 06/12/20 09:00 06/14/20 08:53 Pantoprazole Sodium (Protonix) 40 mg DAILY PO 06/11/20 09:00 06/14/20 08:53 Potassium Chloride (Micro-K Extencaps) 10 meq BID PO 06/10/20 21:00 06/14/20 08:53 Pravastatin Sodium (Pravachol) 40 mg DAILY PO 06/11/20 09:00 06/14/20 08:52 Rivaroxaban (Xarelto) 10 mg DAILY@1800 PO 06/10/20 18:00 06/13/20 16:53 Senna (Senokot) 1 tab QHS PO 06/10/20 21:00 06/13/20 20:49 Tramadol HCl (Ultram) 50 mg Q4HP PRN PO MODERATE PAIN (PS 5-7) 06/10/20 14:30 06/11/20 10:45 DC 06/10/20 23:42 Trazodone HCl (Desyrel) 25 mg QHS PO 06/10/20 21:00 06/13/20 20:48 JOSE VILLEDA MD Jun 14, 2020 11:55
[2020-06-14 14:00] VITALS: BP 140/65
[2020-06-14] MEDS: RIVAROXABAN 10 MG TAB (XARELTO) PO SCH (17:24)
[2020-06-14 20:00] VITALS: BP 137/62
[2020-06-14] MEDS: traZODone 25MG PER 1/2 TABLET PO SCH (20:29)
[2020-06-14] MEDS: SENNA 8.6 MG TAB (SENOKOT) PO SCH (20:30)
[2020-06-14] MEDS: LATANOPROST 0.005% OPHTH SOLN 2.5 ML OU SCH (21:41)
[2020-06-15 05:29] VITALS: BP 142/73
[2020-06-15] MEDS: DOCUSATE SODIUM 100 MG CAP PO SCH ×2 (07:15→20:51)
[2020-06-15] MEDS: FERROUS GLUCONATE 324 MG TAB PO SCH (07:27)
[2020-06-15] MEDS: ACETAMINOPHEN 500 MG TAB PO SCH ×3 (07:27→20:50)
[2020-06-15] MEDS: PRAVASTATIN 20 MG TAB PO SCH (07:28)
[2020-06-15] MEDS: PANTOPRAZOLE 40MG TAB (PROTONIX) PO SCH (07:28)
[2020-06-15] MEDS: POTASSIUM CHLORIDE 10 MEQ SR TABLET PO SCH ×2 (07:28→20:51)
[2020-06-15] MEDS: BRINZOLAMIDE 1 % OPHTH SUSP (AZOPT) 10ML OS SCH ×2 (07:31→20:51)
[2020-06-15 14:00] VITALS: BP 132/62
[2020-06-15] MEDS: RIVAROXABAN 10 MG TAB (XARELTO) PO SCH (16:36)
[2020-06-15 20:15] VITALS: BP 155/75
[2020-06-15] MEDS: traZODone 25MG PER 1/2 TABLET PO SCH (20:50)
[2020-06-15] MEDS: LATANOPROST 0.005% OPHTH SOLN 2.5 ML OU SCH (20:51)
[2020-06-15] MEDS: SENNA 8.6 MG TAB (SENOKOT) PO SCH (20:51)
[2020-06-16 05:47] VITALS: BP 142/66
[2020-06-16] MEDS: POTASSIUM CHLORIDE 10 MEQ SR TABLET PO SCH ×2 (08:19→20:26)
[2020-06-16] MEDS: ACETAMINOPHEN 500 MG TAB PO SCH ×3 (08:19→20:26)
[2020-06-16] MEDS: PANTOPRAZOLE 40MG TAB (PROTONIX) PO SCH (08:20)
[2020-06-16] MEDS: PRAVASTATIN 20 MG TAB PO SCH (08:20)
[2020-06-16] MEDS: FERROUS GLUCONATE 324 MG TAB PO SCH (08:20)
[2020-06-16] MEDS: BRINZOLAMIDE 1 % OPHTH SUSP (AZOPT) 10ML OS SCH ×2 (08:21→20:27)
[2020-06-16] MEDS: DOCUSATE SODIUM 100 MG CAP PO SCH ×2 (09:00→20:26)
[2020-06-16 14:21] VITALS: BP 142/70
[2020-06-16] MEDS: RIVAROXABAN 10 MG TAB (XARELTO) PO SCH (17:16)
[2020-06-16 20:00] VITALS: BP 154/79
[2020-06-16] MEDS: LATANOPROST 0.005% OPHTH SOLN 2.5 ML OU SCH (20:26)
[2020-06-16] MEDS: traZODone 25MG PER 1/2 TABLET PO SCH (20:26)
[2020-06-16] MEDS: SENNA 8.6 MG TAB (SENOKOT) PO SCH (21:00)
[2020-06-17 05:36] VITALS: BP 145/65
[2020-06-17 06:21] LABS: BASO # 0.1 10^3/uL (0.0-0.2); BASO % 1.2 % (0.0-1.0); EOS # 0.3 10^3/uL (0.0-0.5); EOS % 3.4 % (0.0-3.0); HEMATOCRIT 36.8 % (36.0-47.0); HEMOGLOBIN 11.7 g/dl (12.0-15.5); LYMPH # 1.5 10^3/uL (1.5-5.0); MEAN CORPUSCULAR HEMOGLOBIN 31.2 pg (27.0-33.0); MEAN CORPUSCULAR HGB CONC 31.8 g/dl (32.0-36.5); MEAN CORPUSCULAR VOLUME 98.1 fl (80.0-96.0); MONO # 0.9 10^3/uL (0.0-0.8); MONO % 11.8 % (0.0-5.0); NEUTROPHILS # 4.7 10^3/uL (1.5-8.5); NEUTROPHILS % 62.8 % (36.0-66.0); PLATELET COUNT, AUTOMATED 380 10^3/uL (150-450); RED BLOOD COUNT 3.75 10^6/uL (4.00-5.40); WHITE BLOOD COUNT 7.4 10^3/uL (4.0-10.0)
[2020-06-17 06:59] LABS: BLOOD UREA NITROGEN 24 MG/DL (7-18); CALCIUM LEVEL 8.9 MG/DL (8.8-10.2); CARBON DIOXIDE LEVEL 25 MEQ/L (21-32); CHLORIDE LEVEL 109 MEQ/L (98-107); GLOMERULAR FILTRATION RATE > 60.0 (>32); GLUCOSE, FASTING 99 MG/DL (70-100); POTASSIUM SERUM 4.2 MEQ/L (3.5-5.1); SODIUM LEVEL 140 MEQ/L (136-145)
[2020-06-17] MEDS: DOCUSATE SODIUM 100 MG CAP PO SCH ×2 (07:20→21:00)
[2020-06-17] MEDS: POTASSIUM CHLORIDE 10 MEQ SR TABLET PO SCH ×2 (07:21→21:26)
[2020-06-17] MEDS: PRAVASTATIN 20 MG TAB PO SCH (07:22)
[2020-06-17] MEDS: ACETAMINOPHEN 500 MG TAB PO SCH ×3 (07:22→21:26)
[2020-06-17] MEDS: FERROUS GLUCONATE 324 MG TAB PO SCH (07:22)
[2020-06-17] MEDS: PANTOPRAZOLE 40MG TAB (PROTONIX) PO SCH (07:22)
[2020-06-17] MEDS: BRINZOLAMIDE 1 % OPHTH SUSP (AZOPT) 10ML OS SCH ×2 (07:23→21:28)
[2020-06-17] MEDS ORDERED: ACETAMINOPHEN TAB 650MG DOSE (2X325MG) PO ONE (11:30)
--- NOTE | 2020-06-17 11:44 | IPNPDOC ---
PM&R Progress Note DATE OF SERVICE: Jun 14, 2020 [employer] Pond Operator Progress Note Subjective: PAtient reporting she felt short of breath in therapy for a few minutes and it has since resolved. She denies chest pain or pressure. REVIEW OF SYSTEMS: The following is a completed review of systems and has been reviewed. Review of systems otherwise unremarkable. PAIN: Patient self reports right leg pain EYES: No recent vision changes EARS, NOSE, & THROAT: No throat pain, or dysphagia, or rhinorrhea CARDIOVASCULAR: Denies chest pain or palpitations PULMONARY: Denies shortness of breath GASTROINTESTINAL: Denies constipation/diarrhea GENITOURINARY: denies dysuria MUSCULOSKELETAL: right femur fracture NEUROLOGICAL:denies paresthesias or tremor HEMATOLOGICAL: +anemia (improved) SKIN: right femur incision PSYCHIATRIC: Unremarkable All other review of systems found to be negative. PHYSICAL EXAMINATION: VITAL SIGNS: Please see below. GENERAL: Pleasant and cooperative. No acute distress. pale HEENT: PERRL. Extraocular movements intact. Clear conjunctiva CARDIOVASCULAR: Regular rate and rhythm. No murmurs, rubs, or gallops LUNGS: Clear to auscultation bilaterally. No wheezes. No rhonchi ABDOMEN: Soft, nontender, nondistended. Positive bowel sounds. Normal active bowel sounds NEUROLOGICAL: Alert and oriented times three. Cranial nerves II through XII grossly intact. Sensation grossly intact EXTREMITIES: 5\5 strength bilateral upper extremities. 5\5 strength right ankle DF/EHL/PF and >3/5 hip flexion (limited due to recent surgery) 5/5 strength in left lower extremity. SKIN: right femur incision c/d/i (-) Ruiz's bilat (+) right ankle swelling, mild TTP ASSESSMENT:84-year-old F with past medical history of osteoporosis who presents status post fall with right femur fracture PLAN: 1. Rehab- PT/OT advance gait and ADLs, strengthen/stretch/maintain ROM all 4 limbs, ambulating with RW 2. cardiac- hx of HTN,c/u home BP meds with holding parameters- medicine consulted to assist in overall management -HLD c/u statin 3. Resp- monitor for infection, encourage incentive spirometry 4. Heme- patient with post-op blood loss anemia, with symptomatic anemia, s/p 2 units rbc with improvement of Hgb patient states she continue to not feel light headed 5. Ortho- s/p right femur ORIF WBAT, ortho consulted 6. GI ppx- protonix 7. DVT ppx- xarelto and teds -dopplers ordered to r/o DVT given shortness of breath in therapy 8. Pain- tylenol, c/u to hold tramadol as patient states her pain is well enough controlled 9. Dispo- next week most likely, progressing towards goals 10. Code- DNR/DNI Allergies Coded Allergies: No Known Drug Allergies (Verified Allergy, Unknown, 06/07/20) Vital Signs Vital Signs Date Time Temp Pulse Resp B/P (MAP) Pulse Ox O2 Delivery O2 Flow Rate FiO2 06/17/20 05:36 98.5 81 18 145/65 (91) 97 Room Air Laboratory Data CBC/BMP Laboratory Tests 06/17/20 06:06 Labs 24H Laboratory Tests 2 06/17/20 06:06: Immature Granulocyte % (Auto) 0.8, Neutrophils (%) (Auto) 62.8, Lymphocytes (%) (Auto) 20.0L, Monocytes (%) (Auto) 11.8H, Eosinophils (%) (Auto) 3.4H, Basophils (%) (Auto) 1.2H, Neutrophils # (Auto) 4.7, Lymphocytes # (Auto) 1.5, Monocytes # (Auto) 0.9H, Eosinophils # (Auto) 0.3, Basophils # (Auto) 0.1, Nucleated Red Blood Cells % (auto) 0.0, Anion Gap 6L, Glomerular Filtration Rate > 60.0, Calcium Level 8.9 Current Medications Current Medications Current Medications Medications (Trade) Dose Ordered Sig/Buster Route PRN Reason Start Time Stop Time Status Last Admin Dose Admin Acetaminophen (Tylenol Tab) 1,000 mg TID PO 06/10/20 16:00 06/17/20 07:22 Brinzolamide (Azopt) 1 drop BID OS 06/10/20 21:00 06/17/20 07:23 Calcium Carbonate (Tums) 1,000 mg Q4HP PRN PO HEARTBURN 06/10/20 14:30 Docusate Sodium (Colace) 100 mg BID PO 06/10/20 21:00 06/17/20 07:20 Ferrous Gluconate (Fergon) 324 mg DAILY PO 06/11/20 09:00 06/17/20 07:22 Gabapentin (Neurontin) 100 mg TID PO 06/10/20 16:00 06/11/20 10:45 DC 06/11/20 08:35 Hydrochlorothiazide (Hydrodiuril) 25 mg DAILY PO 06/11/20 09:00 06/11/20 10:45 DC 06/11/20 08:35 Hydrochlorothiazide (Hydrodiuril) 25 mg DAILY PO 06/12/20 09:00 06/14/20 11:54 DC 06/14/20 08:53 Latanoprost (Xalatan 0.005% Op Soln) 1 drop QHS OU 06/10/20 21:00 06/16/20 20:26 Losartan Potassium (Cozaar) 100 mg DAILY PO 06/11/20 09:00 06/11/20 10:45 DC 06/11/20 08:37 Losartan Potassium (Cozaar) 100 mg DAILY PO 06/12/20 09:00 06/14/20 11:54 DC 06/14/20 08:53 Miscellaneous (Unresolved Clarification Entry) SEE LABEL COMMENTS DAILY XX 06/16/20 09:00 06/17/20 08:40 DC Pantoprazole Sodium (Protonix) 40 mg DAILY PO 06/11/20 09:00 06/17/20 07:22 Potassium Chloride (Micro-K Extencaps) 10 meq BID PO 06/10/20 21:00 06/17/20 07:21 Pravastatin Sodium (Pravachol) 40 mg DAILY PO 06/11/20 09:00 06/17/20 07:22 Rivaroxaban (Xarelto) 10 mg DAILY@1800 PO 06/10/20 18:00 06/16/20 17:16 Senna (Senokot) 1 tab QHS PO 06/10/20 21:00 06/13/20 20:49 Tramadol HCl (Ultram) 50 mg Q4HP PRN PO MODERATE PAIN (PS 5-7) 06/10/20 14:30 06/11/20 10:45 DC 06/10/20 23:42 Trazodone HCl (Desyrel) 25 mg QHS PO 06/10/20 21:00 06/16/20 20:26 JOSE VILLEDA MD Jun 17, 2020 11:44
--- NOTE | 2020-06-17 11:45 | IPNPDOC ---
PM&R Progress Note DATE OF SERVICE: Jun 17, 2020 [employer] And [employer] Machine Operator Progress Note Subjective: Patient reporting she feels very well and is comfortable having room privileges. She reports minimal pain and that tylenol seems to be helping her. REVIEW OF SYSTEMS: The following is a completed review of systems and has been reviewed. Review of systems otherwise unremarkable. PAIN: Patient self reports right leg pain EYES: No recent vision changes EARS, NOSE, & THROAT: No throat pain, or dysphagia, or rhinorrhea CARDIOVASCULAR: Denies chest pain or palpitations PULMONARY: Denies shortness of breath GASTROINTESTINAL: Denies constipation/diarrhea GENITOURINARY: denies dysuria MUSCULOSKELETAL: right femur fracture NEUROLOGICAL:denies paresthesias or tremor HEMATOLOGICAL: +anemia (improved) SKIN: right femur incision PSYCHIATRIC: Unremarkable All other review of systems found to be negative. PHYSICAL EXAMINATION: VITAL SIGNS: Please see below. GENERAL: Pleasant and cooperative. No acute distress. pale HEENT: PERRL. Extraocular movements intact. Clear conjunctiva CARDIOVASCULAR: Regular rate and rhythm. No murmurs, rubs, or gallops LUNGS: Clear to auscultation bilaterally. No wheezes. No rhonchi ABDOMEN: Soft, nontender, nondistended. Positive bowel sounds. Normal active bowel sounds NEUROLOGICAL: Alert and oriented times three. Cranial nerves II through XII grossly intact. Sensation grossly intact EXTREMITIES: 5\5 strength bilateral upper extremities. 5\5 strength right ankle DF/EHL/PF and >3/5 hip flexion (limited due to recent surgery) 5/5 strength in left lower extremity. SKIN: right femur incision c/d/i (-) Ruiz's bilat (+) right ankle swelling, mild TTP ASSESSMENT:84-year-old F with past medical history of osteoporosis who presents status post fall with right femur fracture PLAN: 1. Rehab- PT/OT advance gait and ADLs, strengthen/stretch/maintain ROM all 4 limbs, ambulating with RW-room privileges 2. cardiac- hx of HTN,c/u home BP meds with holding parameters- medicine consulted to assist in overall management -HLD c/u statin 3. Resp- monitor for infection, encourage incentive spirometry 4. Heme- patient with post-op blood loss anemia, with symptomatic anemia, s/p 2 units rbc with improvement of Hgb patient states she continue to not feel light headed 5. Ortho- s/p right femur ORIF WBAT, ortho consulted 6. GI ppx- protonix 7. DVT ppx- xarelto and teds -dopplers preliminary read negative 8. Pain- tylenol, c/u to hold tramadol as patient states her pain is well enough controlled 9. Dispo- nearing discharge to home 10. Code- DNR/DNI Allergies Coded Allergies: No Known Drug Allergies (Verified Allergy, Unknown, 06/07/20) Vital Signs Vital Signs Date Time Temp Pulse Resp B/P (MAP) Pulse Ox O2 Delivery O2 Flow Rate FiO2 06/17/20 05:36 98.5 81 18 145/65 (91) 97 Room Air Laboratory Data CBC/BMP Laboratory Tests 06/17/20 06:06 Labs 24H Laboratory Tests 2 06/17/20 06:06: Immature Granulocyte % (Auto) 0.8, Neutrophils (%) (Auto) 62.8, Lymphocytes (%) (Auto) 20.0L, Monocytes (%) (Auto) 11.8H, Eosinophils (%) (Auto) 3.4H, Basophils (%) (Auto) 1.2H, Neutrophils # (Auto) 4.7, Lymphocytes # (Auto) 1.5, Monocytes # (Auto) 0.9H, Eosinophils # (Auto) 0.3, Basophils # (Auto) 0.1, Nucleated Red Blood Cells % (auto) 0.0, Anion Gap 6L, Glomerular Filtration Rate > 60.0, Calcium Level 8.9 Current Medications Current Medications Current Medications Medications (Trade) Dose Ordered Sig/Buster Route PRN Reason Start Time Stop Time Status Last Admin Dose Admin Acetaminophen (Tylenol Tab) 1,000 mg TID PO 06/10/20 16:00 06/17/20 07:22 Brinzolamide (Azopt) 1 drop BID OS 06/10/20 21:00 06/17/20 07:23 Calcium Carbonate (Tums) 1,000 mg Q4HP PRN PO HEARTBURN 06/10/20 14:30 Docusate Sodium (Colace) 100 mg BID PO 06/10/20 21:00 06/17/20 07:20 Ferrous Gluconate (Fergon) 324 mg DAILY PO 06/11/20 09:00 06/17/20 07:22 Gabapentin (Neurontin) 100 mg TID PO 06/10/20 16:00 06/11/20 10:45 DC 06/11/20 08:35 Hydrochlorothiazide (Hydrodiuril) 25 mg DAILY PO 06/11/20 09:00 06/11/20 10:45 DC 06/11/20 08:35 Hydrochlorothiazide (Hydrodiuril) 25 mg DAILY PO 06/12/20 09:00 06/14/20 11:54 DC 06/14/20 08:53 Latanoprost (Xalatan 0.005% Op Soln) 1 drop QHS OU 06/10/20 21:00 06/16/20 20:26 Losartan Potassium (Cozaar) 100 mg DAILY PO 06/11/20 09:00 06/11/20 10:45 DC 06/11/20 08:37 Losartan Potassium (Cozaar) 100 mg DAILY PO 06/12/20 09:00 06/14/20 11:54 DC 06/14/20 08:53 Miscellaneous (Unresolved Clarification Entry) SEE LABEL COMMENTS DAILY XX 06/16/20 09:00 06/17/20 08:40 DC Pantoprazole Sodium (Protonix) 40 mg DAILY PO 06/11/20 09:00 06/17/20 07:22 Potassium Chloride (Micro-K Extencaps) 10 meq BID PO 06/10/20 21:00 06/17/20 07:21 Pravastatin Sodium (Pravachol) 40 mg DAILY PO 06/11/20 09:00 06/17/20 07:22 Rivaroxaban (Xarelto) 10 mg DAILY@1800 PO 06/10/20 18:00 06/16/20 17:16 Senna (Senokot) 1 tab QHS PO 06/10/20 21:00 06/13/20 20:49 Tramadol HCl (Ultram) 50 mg Q4HP PRN PO MODERATE PAIN (PS 5-7) 06/10/20 14:30 06/11/20 10:45 DC 06/10/20 23:42 Trazodone HCl (Desyrel) 25 mg QHS PO 06/10/20 21:00 06/16/20 20:26 JOSE VILLEDA MD Jun 17, 2020 11:45
[2020-06-17 14:00] VITALS: BP 153/74
[2020-06-17] MEDS: RIVAROXABAN 10 MG TAB (XARELTO) PO SCH (17:26)
[2020-06-17 20:00] VITALS: BP 128/62
[2020-06-17] MEDS: SENNA 8.6 MG TAB (SENOKOT) PO SCH (21:00)
[2020-06-17] MEDS: traZODone 25MG PER 1/2 TABLET PO SCH (21:28)
[2020-06-17] MEDS: LATANOPROST 0.005% OPHTH SOLN 2.5 ML OU SCH (21:28)
[2020-06-18 06:06] VITALS: BP 141/66
[2020-06-18] MEDS ORDERED: XARE10TA PO (06:08)
[2020-06-18] MEDS: DOCUSATE SODIUM 100 MG CAP PO SCH ×2 (09:00→20:43)
[2020-06-18] MEDS: POTASSIUM CHLORIDE 10 MEQ SR TABLET PO SCH ×2 (09:02→20:42)
[2020-06-18] MEDS: FERROUS GLUCONATE 324 MG TAB PO SCH (09:02)
[2020-06-18] MEDS: PANTOPRAZOLE 40MG TAB (PROTONIX) PO SCH (09:03)
[2020-06-18] MEDS: ACETAMINOPHEN 500 MG TAB PO SCH ×3 (09:03→20:42)
[2020-06-18] MEDS: BRINZOLAMIDE 1 % OPHTH SUSP (AZOPT) 10ML OS SCH ×2 (09:03→20:43)
[2020-06-18] MEDS: PRAVASTATIN 20 MG TAB PO SCH (09:03)
--- NOTE | 2020-06-18 12:41 | IPNPDOC ---
PM&R Progress Note DATE OF SERVICE: Jun 18, 2020 [employer] Recovery Progress Note Subjective: Patient reporting she feels ready to go home tomorrow and is in good spirits. REVIEW OF SYSTEMS: The following is a completed review of systems and has been reviewed. Review of systems otherwise unremarkable. PAIN: Patient self reports right leg pain EYES: No recent vision changes EARS, NOSE, & THROAT: No throat pain, or dysphagia, or rhinorrhea CARDIOVASCULAR: Denies chest pain or palpitations PULMONARY: Denies shortness of breath GASTROINTESTINAL: Denies constipation/diarrhea GENITOURINARY: denies dysuria MUSCULOSKELETAL: right femur fracture NEUROLOGICAL:denies paresthesias or tremor HEMATOLOGICAL: +anemia (improved) SKIN: right femur incision PSYCHIATRIC: Unremarkable All other review of systems found to be negative. PHYSICAL EXAMINATION: VITAL SIGNS: Please see below. GENERAL: Pleasant and cooperative. No acute distress. pale HEENT: PERRL. Extraocular movements intact. Clear conjunctiva CARDIOVASCULAR: Regular rate and rhythm. No murmurs, rubs, or gallops LUNGS: Clear to auscultation bilaterally. No wheezes. No rhonchi ABDOMEN: Soft, nontender, nondistended. Positive bowel sounds. Normal active bowel sounds NEUROLOGICAL: Alert and oriented times three. Cranial nerves II through XII grossly intact. Sensation grossly intact EXTREMITIES: 5\5 strength bilateral upper extremities. 5\5 strength right ankle DF/EHL/PF and >3/5 hip flexion (limited due to recent surgery) 5/5 strength in left lower extremity. SKIN: right femur incision c/d/i (-) Ruiz's bilat ASSESSMENT:84-year-old F with past medical history of osteoporosis who presents status post fall with right femur fracture PLAN: 1. Rehab- PT/OT advance gait and ADLs, strengthen/stretch/maintain ROM all 4 limbs, ambulating with RW-room privileges 2. cardiac- hx of HTN,c/u home BP meds with holding parameters- medicine consulted to assist in overall management -HLD c/u statin 3. Resp- monitor for infection, encourage incentive spirometry 4. Heme- patient with post-op blood loss anemia, with symptomatic anemia, s/p 2 units rbc with improvement of Hgb patient states she continue to not feel light headed 5. Ortho- s/p right femur ORIF WBAT, ortho consulted 6. GI ppx- protonix 7. DVT ppx- xarelto and teds -dopplers preliminary read negative 8. Pain- tylenol, c/u to hold tramadol as patient states her pain is well enough controlled on tylenol 9. Dispo- 06-19-20 to home, progressing towards goals Allergies Coded Allergies: No Known Drug Allergies (Verified Allergy, Unknown, 06/07/20) Vital Signs Vital Signs Date Time Temp Pulse Resp B/P (MAP) Pulse Ox O2 Delivery O2 Flow Rate FiO2 06/18/20 06:06 97.7 88 17 141/66 (91) 95 Room Air Current Medications Current Medications Current Medications Medications (Trade) Dose Ordered Sig/Buster Route PRN Reason Start Time Stop Time Status Last Admin Dose Admin Acetaminophen (Tylenol Tab) 1,000 mg TID PO 06/10/20 16:00 06/18/20 09:03 Brinzolamide (Azopt) 1 drop BID OS 06/10/20 21:00 06/18/20 09:03 Calcium Carbonate (Tums) 1,000 mg Q4HP PRN PO HEARTBURN 06/10/20 14:30 Docusate Sodium (Colace) 100 mg BID PO 06/10/20 21:00 06/17/20 07:20 Ferrous Gluconate (Fergon) 324 mg DAILY PO 06/11/20 09:00 06/18/20 09:02 Gabapentin (Neurontin) 100 mg TID PO 06/10/20 16:00 06/11/20 10:45 DC 06/11/20 08:35 Hydrochlorothiazide (Hydrodiuril) 25 mg DAILY PO 06/11/20 09:00 06/11/20 10:45 DC 06/11/20 08:35 Hydrochlorothiazide (Hydrodiuril) 25 mg DAILY PO 06/12/20 09:00 06/14/20 11:54 DC 06/14/20 08:53 Latanoprost (Xalatan 0.005% Op Soln) 1 drop QHS OU 06/10/20 21:00 06/17/20 21:28 Losartan Potassium (Cozaar) 100 mg DAILY PO 06/11/20 09:00 06/11/20 10:45 DC 06/11/20 08:37 Losartan Potassium (Cozaar) 100 mg DAILY PO 06/12/20 09:00 06/14/20 11:54 DC 10/2/20 08:53 Miscellaneous (Unresolved Clarification Entry) SEE LABEL COMMENTS DAILY XX 06/16/20 09:00 06/17/20 08:40 DC Pantoprazole Sodium (Protonix) 40 mg DAILY PO 06/11/20 09:00 06/18/20 09:03 Potassium Chloride (Micro-K Extencaps) 10 meq BID PO 06/10/20 21:00 06/18/20 09:02 Pravastatin Sodium (Pravachol) 40 mg DAILY PO 06/11/20 09:00 06/18/20 09:03 Rivaroxaban (Xarelto) 10 mg DAILY@1800 PO 06/10/20 18:00 06/17/20 17:26 Senna (Senokot) 1 tab QHS PO 06/10/20 21:00 06/13/20 20:49 Tramadol HCl (Ultram) 50 mg Q4HP PRN PO MODERATE PAIN (PS 5-7) 06/10/20 14:30 06/11/20 10:45 DC 06/10/20 23:42 Trazodone HCl (Desyrel) 25 mg QHS PO 06/10/20 21:00 06/17/20 21:28 JOSE VILLEDA MD Jun 18, 2020 12:41
[2020-06-18 14:00] VITALS: BP 152/67
[2020-06-18] MEDS: RIVAROXABAN 10 MG TAB (XARELTO) PO SCH (16:44)
[2020-06-18 20:00] VITALS: BP 151/67
[2020-06-18] MEDS: traZODone 25MG PER 1/2 TABLET PO SCH (20:43)
[2020-06-18] MEDS: SENNA 8.6 MG TAB (SENOKOT) PO SCH (20:43)
[2020-06-18] MEDS: LATANOPROST 0.005% OPHTH SOLN 2.5 ML OU SCH (20:44)
[2020-06-19 06:23] LABS: BASO # 0.1 10^3/uL (0.0-0.2); BASO % 1.3 % (0.0-1.0); EOS # 0.2 10^3/uL (0.0-0.5); EOS % 2.5 % (0.0-3.0); HEMATOCRIT 35.8 % (36.0-47.0); HEMOGLOBIN 11.3 g/dl (12.0-15.5); LYMPH # 1.5 10^3/uL (1.5-5.0); LYMPH % 20.1 % (24.0-44.0); MEAN CORPUSCULAR HEMOGLOBIN 31.1 pg (27.0-33.0); MEAN CORPUSCULAR HGB CONC 31.6 g/dl (32.0-36.5); MEAN CORPUSCULAR VOLUME 98.6 fl (80.0-96.0); MONO # 0.7 10^3/uL (0.0-0.8); MONO % 9.1 % (0.0-5.0); NEUTROPHILS % 66.2 % (36.0-66.0); PLATELET COUNT, AUTOMATED 385 10^3/uL (150-450); RED BLOOD COUNT 3.63 10^6/uL (4.00-5.40); WHITE BLOOD COUNT 7.5 10^3/uL (4.0-10.0)
[2020-06-19 06:36] VITALS: BP 133/63
[2020-06-19 06:46] LABS: BLOOD UREA NITROGEN 18 MG/DL (7-18); CALCIUM LEVEL 8.4 MG/DL (8.8-10.2); CARBON DIOXIDE LEVEL 23 MEQ/L (21-32); CHLORIDE LEVEL 112 MEQ/L (98-107); CREATININE FOR GFR 0.84 MG/DL (0.55-1.30); GLOMERULAR FILTRATION RATE > 60.0 (>32); GLUCOSE, FASTING 100 MG/DL (70-100); POTASSIUM SERUM 4.4 MEQ/L (3.5-5.1); SODIUM LEVEL 141 MEQ/L (136-145)
[2020-06-19] MEDS: BRINZOLAMIDE 1 % OPHTH SUSP (AZOPT) 10ML OS SCH (08:59)
[2020-06-19] MEDS: PRAVASTATIN 20 MG TAB PO SCH (08:59)
[2020-06-19] MEDS: POTASSIUM CHLORIDE 10 MEQ SR TABLET PO SCH (08:59)
[2020-06-19] MEDS: FERROUS GLUCONATE 324 MG TAB PO SCH (08:59)
[2020-06-19] MEDS: ACETAMINOPHEN 500 MG TAB PO SCH (08:59)
[2020-06-19] MEDS: PANTOPRAZOLE 40MG TAB (PROTONIX) PO SCH (08:59)
[2020-06-19] MEDS: DOCUSATE SODIUM 100 MG CAP PO SCH (09:00)
--- NOTE | 2020-06-24 10:10 | REP ---
BILATERAL LOWER EXTREMITY VENOUS DOPPLER ULTRASOUND HISTORY: Swelling. Rule out deep vein thrombosis (DVT). FINDINGS: The deep veins are anechoic and fully compressible from the groin to the popliteal fossa in both lower extremities on two-dimensional scanning. Color flow imaging is homogeneous. Spectral Doppler interrogation demonstrates intact respiratory variation of flow and normal manual augmentation of flow. IMPRESSION: Negative bilateral lower extremity Doppler ultrasound. No evidence of deep vein thrombosis (DVT). MTDD
== END 2020-06-19 11:55 | disposition home health service (06) | DRG 561 ==
LOC: M PM&R 15:10
PROVIDERS: ADMIT Physical Medicine & Rehabilitation; ATTEND Physical Medicine & Rehabilitation
PROC: 30233N1 Transfusion of Nonautologous Red Blood Cells into Peripheral Vein, Percutaneous Approach (ICD-10-PCS; principal; 2020-06-11)
DX: S72.321D Displaced transverse fracture of shaft of right femur, subsequent encounter for closed fracture with routine healing (principal); M81.0 Age-related osteoporosis without current pathological fracture; M54.5 Low back pain; E78.5 Hyperlipidemia, unspecified; H40.9 Unspecified glaucoma; J30.9 Allergic rhinitis, unspecified; W18.09XD Striking against other object with subsequent fall, subsequent encounter; Y92.9 Unspecified place or not applicable; D50.0 Iron deficiency anemia secondary to blood loss (chronic); I10 Essential (primary) hypertension; Z66 Do not resuscitate; R26.89 Other abnormalities of gait and mobility; Z79.82 Long term (current) use of aspirin; Z79.01 Long term (current) use of anticoagulants; Z79.899 Other long term (current) drug therapy; Z96.652 Presence of left artificial knee joint

== ENCOUNTER → 2021-03-14 | Outpatient (CLI) | payer MEDICARE, BC, OTHER ==
[~2021-03-14] MED LIST changes: +HYDR-3490 PO; -HYDR25TAB PO; -PEG1POW PO; +POLY17PO18 PO
--- NOTE | 2021-03-14 14:37 | REP ---
INDICATION: DISPLACE TRANSVERSE FX SHAFT OF RIGHT FEMUR, 7THD. COMPARISON: None. TECHNIQUE: Three views FINDINGS: There is mild tricompartmental marginal osteophytosis with mild to moderate patellofemoral joint space narrowing. The medial and lateral compartments are relatively well maintained. There is no acute fracture. IMPRESSION: Chronic changes as described above. <Electronically signed by Judd Reid > 03/14/21 [id number]
--- NOTE | 2021-03-14 14:37 | REP ---
INDICATION: N. COMPARISON: None. TECHNIQUE: AP and frog-lateral views FINDINGS: There has been previous ORIF with an intramedullary maddie seen within the femur. Two cancellous a fixing screws in the femoral neck are identified. The screw tips do not breach the joint space. There is callus formation seen at a previous femoral diaphyseal fracture. The distal aspect of the intramedullary maddie does not breach the knee joint. Two fixing screws are seen transversely within the distal femoral diaphysis. There is no evidence of an acute fracture. IMPRESSION: Healing fracture an intramedullary maddie as described above. <Electronically signed by Judd Reid > 03/14/21 [id number]
== END ==
LOC: M SOG 13:19
PROVIDERS: ATTEND Orthopaedic Surgery Sports Medicine
DX: S72.321D Displaced transverse fracture of shaft of right femur, subsequent encounter for closed fracture with routine healing (principal); W18.30XD Fall on same level, unspecified, subsequent encounter; Y92.009 Unspecified place in unspecified non-institutional (private) residence as the place of occurrence of the external cause

== ENCOUNTER → 2021-06-26 | Outpatient (CLI) | payer MEDICARE, BC, OTHER ==
--- NOTE | 2021-06-26 15:02 | REP ---
INDICATION: RT FEMUR FX. COMPARISON: 03/14/2021 TECHNIQUE: AP and frog-lateral views of the right femur. FINDINGS: Patient is again noted to be status post open reduction and fixation with intramedullary maddie through the femur. Orthopedic hardware is in stable satisfactory position. Healing nondisplaced fracture through the mid femoral shaft noted. No acute fracture or dislocation. Generalized age-related changes and osteopenia at the hip and knee joint noted. IMPRESSION: Stable healing fracture. Orthopedic hardware in satisfactory stable position. <Electronically signed by David Horta > 06/26/21 [id number]
== END ==
LOC: M SOG 13:46
PROVIDERS: ATTEND Orthopaedic Surgery Sports Medicine
DX: S72.301K Unspecified fracture of shaft of right femur, subsequent encounter for closed fracture with nonunion (principal)

== ENCOUNTER 2025-01-18 07:45 | Day surgery (SDC) | payer MEDICARE, BC ==
[~2025-01-18] VITALS: Ht 157.5 cm; Wt 56.7 kg
[2025-01-18] MEDS: CEFUROXIME 1MG/0.1ML INTRACAMERAL INJ As Ordered ONE (06:58)
[~2025-01-18 07:45] MED LIST changes: +LOSA100T46 PO; -LOSA100T50 PO; +NITR100C2 PO; +PHENYLEPHRINE 10% OPHTH SOL 5ML OD PRN; -POTA10CA32 PO; +POTA10CA70 PO; +PROB250C PO; +fentaNYL 100 MCG/2 ML INJECTION As Ordered ONE
[2025-01-18] MEDS: CYCLOPENTOLATE 1% OPHTH SOLN 2ML BTL OD SCH (08:32)
[2025-01-18] MEDS: TROPICAMIDE 1% OPHTH SOLN 15ML OD SCH (08:32)
[2025-01-18] MEDS: PHENYLEPHRINE 2.5% OPHTH SOL 2ML OD SCH (08:32)
[2025-01-18] MEDS: LIDOCAINE 3.5 % 1ML OPHTH TOPICAL GEL OU ONE (08:32)
[2025-01-18] MEDS: OFLOXACIN 0.3 % (OCUFLOX) OPTH SOL 5ML OD ONE (08:32)
[2025-01-18] MEDS: LIDOCAINE 1% SDV 5ML VIAL As Ordered ONE (09:02)
[2025-01-18] MEDS: BSS IRRIG/VANCO(10MG)/TOBRA(5MG)/EPINEPH(1:1000-0.5CC)500ML BAG-ORONLY As Ordered ONE (09:02)
[2025-01-18 09:15] VITALS: BP 178/76; TEMP 97; O2SAT 96
[2025-01-18] MEDS: TOBRADEX OPHTH OINT 3.5 GM As Ordered ONE (09:15)
== END 2025-01-18 09:45 | disposition home or self-care (01) ==
LOC: M SDC 07:45
PROVIDERS: ATTEND Ophthalmology
DX: H25.11 Age-related nuclear cataract, right eye (principal); Z86.73 Personal history of transient ischemic attack (TIA), and cerebral infarction without residual deficits; Z79.899 Other long term (current) drug therapy
CPT/HCPCS: 66984; J0697; J3010

== ENCOUNTER → 2025-05-07 | Outpatient (REF) | payer MEDICARE, BC, MEDICAID ==
[~2025-05-07] MED LIST changes: -PHENYLEPHRINE 10% OPHTH SOL 5ML OD PRN; +PRAV40TA85 PO; -fentaNYL 100 MCG/2 ML INJECTION As Ordered ONE
[2025-05-07 11:15] LABS: CALCIUM LEVEL 10.5 MG/DL (8.3-10.6); CARBON DIOXIDE LEVEL 30.0 MMOL/L (20-31); CHLORIDE LEVEL 116.0 MMOL/L (98-107); CREATININE FOR GFR 1.02 MG/DL (0.55-1.30); GLOMERULAR FILTRATION RATE 52.6 (>32); POTASSIUM SERUM 4.1 MMOL/L (3.5-5.1); SODIUM LEVEL 160.0 MMOL/L (136-145)
== END ==
LOC: SKLAB6 09:34
PROVIDERS: ATTEND Internal Medicine
DX: M81.0 Age-related osteoporosis without current pathological fracture (principal)